=== PATIENT | male | born 1960 | race American Indian/Alaskan Native ===

== ENCOUNTER 2017-03-31 08:35 | Inpatient (IN) | payer MEDICAID ==
[2017-03-31 09:00] VITALS: BMI 21.4
[2017-03-31] MEDS: Albuterol-Ipratrop 3 mg / 0.5 (3 ml) UD IH SCH ×3 (09:30→09:55)
[2017-03-31] MEDS ORDERED: Albuterol-Ipratrop 3 mg / 0.5 (3 ml) UD ONE (09:31)
[2017-03-31] MEDS ORDERED: Sodium Chloride 0.9% 500 ML IV ONE ×2 (09:58→10:16)
--- NOTE | 2017-03-31 09:58 | C.PDOC ---
History Of Present Illness The patient with PMHx of COPD and Heroin abuse reports 3 day history cough which is associated fever, chills, and bodyaches. The patient reports that today the symptoms are now associated with diarrhea. Denies vomiting, travel, GI bleeding, chest pain, rash, abdominal pain, neck pain. Time Seen by Provider: 03/31/17 08:37 Chief Complaint (Nursing): Shortness Of Breath History Per: Patient History/Exam Limitations: no limitations Onset/Duration Of Symptoms: Days Current Symptoms Are (Timing): Still Present Recent travel outside of the [place]: No Past Medical History Reviewed: Historical Data, Nursing Documentation, Vital Signs Vital Signs: Last Vital Signs Temp 98.9 F 03/31/17 09:01 Pulse 69 03/31/17 09:57 Resp 27 H 03/31/17 09:57 BP 152/92 H 03/31/17 09:57 Pulse Ox 95 03/31/17 11:04 - Medical History PMH: No Chronic Diseases, COPD Family History: States: No Known Family Hx - Social History Hx Alcohol Use: No Hx Substance Use: Yes - Immunization History Hx Tetanus Toxoid Vaccination: No Hx Influenza Vaccination: No Hx Pneumococcal Vaccination: No Review Of Systems Except As Marked, All Systems Reviewed And Found Negative. Physical Exam - Physical Exam Appears: Non-toxic, No Acute Distress Skin: Normal Color, Warm, No Rash Head: Atraumatic, Normacephalic Eye(s): bilateral: Normal Inspection Oral Mucosa: Moist Throat: No Erythema, No Exudate Neck: Normal ROM, Supple Lymphatic: Normal Exam Chest: Symmetrical, No Tenderness Cardiovascular: Rhythm Regular, No Friction Rub, No Murmur Respiratory: Decreased Breath Sounds, No Rales, No Rhonchi, No Wheezing Gastrointestinal/Abdominal: Soft, No Tenderness Back: Normal Inspection, No CVA Tenderness Extremity: Normal ROM, No Tenderness, No Swelling Neurological/Psych: Oriented x3, Normal Speech, Normal Motor Gait: Steady ED Course And Treatment - Laboratory Results Result Diagrams: 03/31/17 10:01 03/31/17 10:01 O2 Sat by Pulse Oximetry: 95 (on RA) Pulse Ox Interpretation: Normal Medical Decision Making Medical Decision Making: Patient given Duonebs and solu-medrol for suspected COPD exacerbation. Flu (+). Tamiflu given. The case was discussed with Dr. Lombardi (hospitalist) who agrees to admit the patient to his service. Disposition - Disposition Disposition: HOSPITALIZED Disposition Time: 11:08 Condition: FAIR Forms: [facility] (Romansh) - POA Present On Arrival: None - Clinical Impression Clinical Impression: Influenza A
--- NOTE | 2017-03-31 09:58 | RAD ---
Chest x-ray single frontal view History: Shortness breath. Comparison: 03/23/2017 Findings: Hyperinflation suggestive for COPD and or emphysematous changes. Small nodular density at the left lung base. Tubing projects over the left [place] thorax, possibly external. Clinical correlation. Bilateral hilar prominence. Diffuse increased interstitial lung markings. Heart size normal limits. Degenerative changes in the spine. Impression: Hyperinflation suggestive for COPD and or emphysematous changes. Small nodular density at the left lung base. Tubing projects over the left [place] thorax, possibly external. Clinical correlation. Bilateral hilar prominence. Diffuse increased interstitial lung markings.
[2017-03-31 10:07] LABS: BASO % 0.6 % (0.0-2.0); HEMOGLOBIN 15.8 g/dL (12.0-18.0); LYMPH # 0.6 K/uL (1.0-4.3); LYMPH % 7.3 % (20.0-40.0); MEAN CELL VOLUME 91.8 fL (80.0-94.0); MEAN CORPUSCULAR HEMOGLOBIN 31.6 pg (27.0-31.0); MEAN CORPUSCULAR HGB CONC 34.4 g/dL (33.0-37.0); MEAN PLATELET VOLUME 7.7 fL (7.2-11.7); MONO # 0.5 K/uL (0.0-0.8); MONO % 5.6 % (0.0-10.0); NEUT # 7.6 K/uL (1.8-7.0); NEUT % 86.5 % (50.0-75.0); PLATELET COUNT 240 K/uL (130-400); RED CELL DISTRIBUTION WIDTH 14.1 % (11.5-14.5); WHITE BLOOD COUNT 8.8 K/uL (4.8-10.8)
[2017-03-31 10:18] LABS: ALB/GLOB RATIO 1.1 (1.0-2.1); ALBUMIN 4.4 g/dL (3.5-5.0); ALT/SGPT 21 U/L (21-72); AST/SGOT 46 U/L (17-59); BLOOD UREA NITROGEN 13 mg/dL (9-20); CALCIUM 9.1 mg/dl (8.6-10.4); GFR AFRICAN-AMERICAN > 60; GFR NON-AFRICAN AMERICAN > 60
[2017-03-31 10:29] LABS: B-TYPE NATRIURETIC PEPTIDE 182 pg/mL (0-900)
[2017-03-31 11:07] LABS: BANDS 19 % (0-2); LYMPHOCYTE 5 % (20-40); MONOCYTE 5 % (0-10); NEUTROPHIL 71 % (50-75); TOTAL CELLS COUNTED 100
[2017-03-31 11:08] LABS: PLATELET ESTIMATE NORMAL (NORMAL)
--- NOTE | 2017-03-31 12:23 | CP.PCM.HP ---
History of Present Illness - History of Present Illness History of Present Illness: CC: "It's hard to breathe and my whole body hurts" Patient is a 57 year old male, with PMHx of COPD, Tobacco abuse disorder, and opioid use disorder, presents to [facility] [place] ED for shortness of breath and cough. Patient reports for last 3 days, he has had a productive cough with green sputum which has become associated with subjective fever, chills, and bodyaches. The patient reports that today the symptoms are now associated with non-bloody diarrhea. He states he can no longer take more than a few steps without becoming SOB, which he normally has no problem walking long distances. He denies needing increased pillows for sleep recently. Patient reports he has abused heroin "off/on for 30 + years." He states his typical use is 5 bags/day via snorting, with last use 2 days ago. He denies IVDA. He states he has done numerous rehab/inpatient visits in the past. He denies getting flu shot this year, knows no sick contacts, and states he has no PMD. He is aware of COPD but denies ever being given inhaler or other medication. He denies vomiting, travel, GI bleeding, chest pain, rash, abdominal pain, neck pain. PMD: none PMHx: COPD, Tobacco abuse disorder, and opioid use disorder PSHx: denies Allergies: PCN (swelling of throat) SHx: 1/2 - 1 ppd x 40 years, denies alcohol; heroin use (as above); employment - [employer] Meds: none Present on Admission - Present on Admission Any Indicators Present on Admission: No Review of Systems - Constitutional Constitutional: Chills, Fever, Weakness. absent: Night Sweats, Sleep Apnea - EENT Eyes: absent: Blurred Vision, Change in Vision Ears: absent: Ear Pain Nose/Mouth/Throat: Sore Throat - Cardiovascular Cardiovascular: Dyspnea. absent: Chest Pain, Chest Pain at Rest - Respiratory Respiratory: Cough, Dyspnea, Dyspnea on Exertion, Chest Congestion - Gastrointestinal Gastrointestinal: Abdominal Pain (epigastric) - Genitourinary Genitourinary: absent: Dysuria, Urinary Incontinence - Musculoskeletal Musculoskeletal: Arthralgias, Myalgias - Integumentary Integumentary: absent: Dry Skin, Wounds - Neurological Neurological: Weakness. absent: Tremor - Psychiatric Psychiatric: Anxiety, Irritability Past Patient History - Past Social History Smoking Status: Heavy Smoker > 10 Cigarettes Daily - PULMONARY Hx Chronic Obstructive Pulmonary Disease (COPD): Yes - PSYCHIATRIC Hx Substance Use: Yes Meds Allergies/Adverse Reactions: Allergies Allergy/AdvReac Type Severity Reaction Status Date / Time amoxicillin Allergy SWELLING Verified 03/31/17 09:00 Physical Exam - Constitutional Appears: Toxic, No Acute Distress, Older Than Stated Age, Chronically Ill - Head Exam Head Exam: ATRAUMATIC, NORMAL INSPECTION - Eye Exam Eye Exam: EOMI, Normal appearance. absent: Scleral icterus - ENT Exam ENT Exam: Mucous Membranes Dry - Neck Exam Neck exam: Positive for: Full Rom Additional comments: no jvd - Respiratory Exam Respiratory Exam: Clear to Auscultation Bilateral, NORMAL BREATHING PATTERN. absent: Accessory Muscle Use, Rales, Rhonchi, Wheezes, Stridor - Cardiovascular Exam Cardiovascular Exam: REGULAR RHYTHM, +S1, +S2, Systolic Murmur - GI/Abdominal Exam GI & Abdominal Exam: Normal Bowel Sounds, Soft, Tenderness (mild epigastric) - Extremities Exam Extremities exam: Positive for: normal inspection. Negative for: pedal edema, tenderness - Back Exam Back exam: absent: CVA tenderness (L), CVA tenderness (R) - Neurological Exam Neurological exam: Alert, Oriented x3 - Psychiatric Exam Psychiatric exam: Normal Affect, Normal Mood - Skin Skin Exam: Normal Color, Warm Results - Vital Signs Recent Vital Signs: Last Vital Signs Temp 98.9 F 03/31/17 09:01 Pulse 73 03/31/17 10:58 Resp 22 03/31/17 10:58 BP 129/81 03/31/17 10:58 Pulse Ox 95 03/31/17 11:12 - Labs Result Diagrams: 03/31/17 10:01 03/31/17 10:01 Labs: Laboratory Results - last 24 hr 03/31/17 03/31/17 03/31/17 09:30 10:01 10:01 WBC 8.8 RBC 5.00 Hgb 15.8 Hct 45.9 MCV 91.8 MCH 31.6 H MCHC 34.4 RDW 14.1 Plt Count 240 MPV 7.7 Neut % (Auto) 86.5 H Lymph % (Auto) 7.3 L [place] % (Auto) 5.6 Eos % (Auto) 0.0 Baso % (Auto) 0.6 Neut # 7.6 H Lymph # 0.6 L [place] # 0.5 Eos # 0.0 Baso # 0.0 Neutrophils % (Manual) 71 Band Neutrophils % 19 H* Lymphocytes % (Manual) 5 L Monocytes % (Manual) 5 Platelet Estimate Normal RBC Morphology Normal Sodium 130 L Potassium 3.8 Chloride 94 L Carbon Dioxide 25 Anion Gap 15 BUN 13 Creatinine 0.9 Est GFR ( Amer) > 60 Est GFR (Non-Af Amer) > 60 Random Glucose 149 H Calcium 9.1 Total Bilirubin 0.7 AST 46 ALT 21 Alkaline Phosphatase 81 Troponin I < 0.0120 NT-Pro-B Natriuret Pep 182 Total Protein 8.3 Albumin 4.4 Globulin 3.9 Albumin/Globulin Ratio 1.1 Influenza Typ A,B (EIA) Pos for influenza a H Assessment & Plan - Assessment and Plan (Free Text) Plan: Sepsis Criteria: Bands >10, Tachypneic Source: influenza, possible pneumonia Lactate 2.2 -f/u repeat VBG shock CXR (03/31/17): Hyperinflation suggestive for COPD. Small nodular density at left lung base. B/l hilar prominence. NS @100 cc/hr Aztreonam 1gm IV Q8H (start 03/31/17) Vancomycin 1gm IV Q12H (start 03/31/17) Tylenol 650mg PO Q6H PRN f/u repeat VBG shock f/u urinalysis, urine culture f/u blood cultures f/u procalcitonin f/u CT Chest W/O COPD exacerbation Admit to med/surg Solumedrol 40mg IV Q8H Pulmicort INH Q12H Influenza Droplet precautions NO WBC, fever + Influenza A Tamiflu 75mg PO BID x 5 days (course ends 04/05/17) Zofran 4mg IV Q6H PRN nausea NS @ 100 cc/hr Possible pneumonia At higher risk due to chronic lung disease, current influenza, and opiate drug use CXR (03/31/17): Hyperinflation suggestive for COPD. Small nodular density at left lung base. B/l hilar prominence. f/u CT Chest W/O Aztreonam 1gm IV Q8H (start 03/31/17) Vancomycin 1gm IV Q12H (start 03/31/17) Tylenol 650mg PO Q6H PRN Opiate use disorder, severe Last use 2 days ago Typical use: 5 bags/day x 2 + ears; 15 yr prior sobriety Methadone 10mg PO HS Psych consult: Dr Baptiste, help appreciated Denies IVDA but systolic murmur f/u ECHO Tobacco use disorder 1/2 - 1 ppd x 40 years Nicoderm CQ Prophylaxis Lovenox 40mg SC Daily SCDs Pepcid 20mg PO BID Florastor 250mg PO BID
[2017-03-31 12:57] LABS: VENOUS BLOOD GAS BASE EXCESS -1.4 mmol/L (0.0-2.0); VENOUS BLOOD GAS PCO2 36 mmHg (40-60); VENOUS BLOOD GAS PO2 38 mm/Hg (30-55); VENOUS BLOOD PH 7.41 (7.32-7.43)
[2017-03-31] MEDS ORDERED: Sodium Chloride 0.9% 1,000 ML IV SCH (14:00)
[2017-03-31 14:37] LABS: SQUAMOUS EPITHIAL < 1 /hpf (0-5); URINE BILIRUBIN NEGATIVE (NEGATIVE); URINE BLOOD 1+ (NEGATIVE); URINE CLARITY Clear (Clear); URINE COLOR Yellow (YELLOW); URINE GLUCOSE (UA) 2+ mg/dL (Normal); URINE LEUKOCYTE ESTERASE NEG Leu/uL (Negative); URINE NITRATE NEGATIVE (NEGATIVE); URINE PROTEIN 2+ mg/dL (NEGATIVE); URINE UROBILINOGEN NORMAL mg/dL (0.2-1.0)
[2017-03-31 14:51] LABS: BARBITURATES, UR NEGATIVE (NEGATIVE); BENZODIAZEPINES, UR NEGATIVE (NEGATIVE); PHENCYCLIDINE, UR NEGATIVE (NEGATIVE)
[2017-03-31 15:16] LABS: OPIATES, UR POSITIVE (NEGATIVE)
[2017-03-31] MEDS: Aztreonam 1 GM in Sodium Chloride 0.9% 100 ML IVPB SCH ×2 (15:26→22:11)
[2017-03-31] MEDS: Vancomycin 1 gm/NS 200 ml 1 GM/200 ML BAG IVPB SCH (16:35)
[2017-03-31] MEDS: Sodium Chloride 0.9% 1,000 ML IV SCH (18:10)
[2017-03-31 18:49] LABS: VENOUS BLOOD GAS BASE EXCESS -1.3 mmol/L (0.0-2.0); VENOUS BLOOD GAS PCO2 46 mmHg (40-60); VENOUS BLOOD GAS PO2 22 mm/Hg (30-55); VENOUS BLOOD PH 7.34 (7.32-7.43)
[2017-03-31] MEDS: Saccharomyces Boulardi 250 mg Cap PO SCH (18:51)
[2017-03-31] MEDS ORDERED: MethylPREDNISolone 40 mg Vial ONE (23:10)
[2017-03-31] MEDS: MethylPREDNISolone 40 mg Vial IVP SCH (23:10)
[2017-04-01 00:23] LABS: VENOUS BLOOD GAS BASE EXCESS 1.7 mmol/L (0.0-2.0); VENOUS BLOOD GAS PCO2 31 mmHg (40-60); VENOUS BLOOD GAS PO2 43 mm/Hg (30-55)
[2017-04-01] MEDS: Sodium Chloride 0.9% 1,000 ML IV SCH ×5 (01:45→21:35)
[2017-04-01] MEDS: Vancomycin 1 gm/NS 200 ml 1 GM/200 ML BAG IVPB SCH ×2 (04:40→16:55)
[2017-04-01] MEDS: Aztreonam 1 GM in Sodium Chloride 0.9% 100 ML IVPB SCH ×2 (06:17→14:00)
[2017-04-01 08:15] LABS: BASO # 0.1 K/uL (0.0-0.2); BASO % 0.6 % (0.0-2.0); HEMOGLOBIN 16.2 g/dL (12.0-18.0); LYMPH # 0.5 K/uL (1.0-4.3); LYMPH % 5.5 % (20.0-40.0); MEAN CELL VOLUME 91.9 fL (80.0-94.0); MEAN CORPUSCULAR HEMOGLOBIN 31.9 pg (27.0-31.0); MEAN CORPUSCULAR HGB CONC 34.7 g/dL (33.0-37.0); MEAN PLATELET VOLUME 8.1 fL (7.2-11.7); MONO # 0.6 K/uL (0.0-0.8); MONO % 6.6 % (0.0-10.0); NEUT # 8.3 K/uL (1.8-7.0); NEUT % 87.3 % (50.0-75.0); PLATELET COUNT 264 K/uL (130-400); RBC 5.09 Mil/uL (4.40-5.90); RED CELL DISTRIBUTION WIDTH 13.8 % (11.5-14.5); WHITE BLOOD COUNT 9.5 K/uL (4.8-10.8)
--- NOTE | 2017-04-01 08:49 | CT ---
PROCEDURE: CT Chest without contrast HISTORY: influenza, sepsis; COPD; density on CXR COMPARISON: None. TECHNIQUE: Contiguous axial images were obtained through the chest without intravenous contrast enhancement. Sagittal and coronal reconstructions were performed. Radiation dose (DLP): 165.99 mGy-cm. This CT exam was performed using one or more of the following dose reduction techniques: Automated exposure control, adjustment of the mA and/or kV according to patient size, and/or use of iterative reconstruction technique. FINDINGS: LUNGS: Multifocal opacities, ill-defined, in the right upper lobe and right middle lobe, superior segment right lower lobe, with dense consolidation in the left lower lobe as well as multifocal ill-defined opacities in the left lower lobe. Small airways disease noted diffusely in the right upper lobe. Centrilobular pulmonary emphysema. Bullous disease involving the left apex. MEDIASTINUM: Unremarkable thoracic aorta. No aneurysm. Normal sized heart. Main pulmonary artery unremarkable. No vascular congestion. No lymphadenopathy. PLEURA: No pleural fluid. No pneumothorax. BONES: No fracture. No destructive lesion. UPPER ABDOMEN: Multiple bilateral punctate nonobstructing renal calculi. OTHER FINDINGS: None. IMPRESSION: Left lower lobe consolidation. Multifocal airspace opacities involving the right upper, middle and lower lobes and left lower lobe. Centrilobular pulmonary emphysema with bullous disease. Multifocal small airways disease throughout the right upper lobe. Nonspecific findings. Concerning for an infectious etiology. Preliminary interpretation of this examination was reported by [facility] at 5:27 p.m. on 03/31/2017. There is concurrence of this report with the preliminary interpretation.
[2017-04-01 08:55] LABS: ALBUMIN 3.9 g/dL (3.5-5.0); ALT/SGPT 16 U/L (21-72); AST/SGOT 40 U/L (17-59); BLOOD UREA NITROGEN 16 mg/dL (9-20); CALCIUM 8.9 mg/dl (8.6-10.4); GFR AFRICAN-AMERICAN > 60; GFR NON-AFRICAN AMERICAN > 60
[2017-04-01] MEDS ORDERED: Potassium Chloride 20 mEq ER Tab PO ONE ×2 (09:21→11:15)
[2017-04-01] MEDS: Budesonide 0.5 mg/2 ml Inhal Susp UD INH SCH ×2 (09:26→20:12)
[2017-04-01] MEDS: Enoxaparin 40 mg Syringe SC SCH ×2 (10:00→10:58)
[2017-04-01] MEDS: Saccharomyces Boulardi 250 mg Cap PO SCH ×3 (10:00→18:43)
[2017-04-01 10:24] LABS: BANDS 12 % (0-2); LYMPHOCYTE 9 % (20-40); MONOCYTE 3 % (0-10); NEUTROPHIL 76 % (50-75); PLATELET ESTIMATE NORMAL (NORMAL); TOTAL CELLS COUNTED 100
[2017-04-01] MEDS: MethylPREDNISolone 40 mg Vial IVP SCH ×2 (10:59→22:22)
--- NOTE | 2017-04-01 11:25 | PCM.PSYCH ---
Initial Psychiatric Evaluation - Initial Psychiatric Evaluation Type of Admission: Voluntary Legal Status: Capacity Chief Complaint (in patient's own words): "I'm withdrawing" History of Present Illness and Precipitating Events: The pt is seen, chart reviewed and case discussed. Pt is a 57 y.o. AA male, 3 children, single, unemployed, lives with brother. Pt states he has snorted 5-6 bags of heroin per day for approximately 2 years. He has used heroin on/off for approximately 20 years. Pt smokes 1.5 ppd cigarettes. Denies use of cocaine, marijuana, xanax, PCP or alcohol. Pt denies suicidal ideation, denies hearing voices, denies feeling depressed. Past psych history: Pt states he has attended detox and rehab 4-5 times each. Family psych history: denies Medical hx- COPD Consultation called for heroin detox. Current Medications: Active Medications Generic Name Dose Route Start Last Admin Trade Name Freq PRN Reason Stop Dose Admin Acetaminophen 650 mg 03/31/17 13:53 Tylenol 325mg Tab PO Q6 PRN Fever >100.4 F Budesonide 0.5 mg 03/31/17 20:00 04/01/17 09:26 Pulmicort Respules INH Not Given RQ12 FARIHA Enoxaparin Sodium 40 mg 04/01/17 10:00 04/01/17 10:00 Lovenox SC Not Given DAILY FARIHA Famotidine 20 mg 03/31/17 18:00 04/01/17 10:00 Pepcid PO Not Given BID FARIHA Vancomycin/Sodium Chloride 1 gm in 200 mls @ 133 mls/hr 03/31/17 16:30 04:40 Vancomycin 1 Gm/Ns 200 Ml IVPB 04/05/17 16:31 133 mls/hr Q12H FARIHA Administration Aztreonam 1 gm/ Sodium 100 mls @ 100 mls/hr 03/31/17 15:30 04/01/17 06:17 Chloride IVPB 100 mls/hr Q8 FARIHA Administration Sodium Chloride 1,000 mls @ 100 mls/hr 03/31/17 17:18 04/01/17 03:18 Sodium Chloride 0.9% IV Not Given .Q10H FARIHA Methadone HCl 15 mg 04/01/17 11:30 Methadone PO 04/01/17 11:31 ONCE ONE Methylprednisolone 40 mg 03/31/17 22:00 04/01/17 10:59 Solu-Medrol IVP 40 mg Q12H FARIHA Administration Nicotine 1 patch 03/31/17 14:00 04/01/17 10:00 Nicoderm Cq TD Not Given DAILY FARIHA Ondansetron HCl 4 mg 03/31/17 14:05 04/01/17 06:29 Zofran Inj IVP 4 mg Q6H PRN Administration Nausea/Vomiting Oseltamivir Phosphate 75 mg 03/31/17 18:00 04/01/17 10:58 Tamiflu Cap PO 04/05/17 14:01 75 mg BID FARIHA Administration Quetiapine Fumarate 50 mg 04/01/17 22:00 Seroquel PO HS FARIHA Saccharomyces Boulardii 250 mg 03/31/17 18:00 04/01/17 10:00 Florastor PO Not Given BID FARIHA Past Psychiatric History - Past Psychiatric History Previous Treatment History: None Pertinent Medical Hx (Current Medical&Sleep Prob, Allergies): Allergies Allergy/AdvReac Type Severity Reaction Status Date / Time amoxicillin Allergy SWELLING Verified 03/31/17 09:00 No Known Home Med 03/31/17 Review of Systems - Neurological Neurological: UNREMARKABLE - Psychiatric Psychiatric: Abnormal Sleep Pattern, Anxiety, Difficulty Concentrating. absent : Hallucinations, Homicidal Ideation, Paranoia, Suicidal Ideation Mental Status Examination - Personal Presentation Personal Presentation: Looks stated age (unkempt, cooperative) - Affect Affect: Constricted - Motor Activity Motor Activity: Calm - Reliability in Providing Information Reliability in Providing Information: Good - Speech Speech: Organized (slowed) - Mood Mood: Anxious - Formal Thought Process Formal Thought Process: No Impairment - Cognitive Functions Orientation: Person, Place, Situation, Time Sensorium: Drowsy Attention/Concentration: Easily distracted Estimate of Intelligence: Average Judgement: Intact, as evidence by: Insight regarding need for hospitalization Memory: Recent intact, as evidence by: Ability to recall events of the day, Remote intact, as evidenced by: Abilit to recall sig. life events - Risk Risk: Withdrawal, Falls, Diminished functioning - Strength & Assets Inventory Strength & Assets Inventory: Life experience, Cooperative - Limitations Limitations: Other (unemployed, poor support) DSM 5 DX - DSM 5 DSM 5 Diagnosis: Opioid withdrawal opioid use d/o - severe Tobacco use d/o - severe - Recommended/Plan of Treatment Treatment Recommendations and Plan of Treatment: Methadone detox As needed medications All risks, benefits and alternatives of the meds discussed, and the pt agreed and understood. Supportive therapy and psychoeducation RI for abstinence Encourage MAT Refer to rehab - for instance [facility] in [place] as he doesn't want local ones. Smoking cessation with RI Nicotine patch 34 min Prognosis: Good with treatment - Smoking Cessation Smoking Cessation Initiated: Yes
--- NOTE | 2017-04-01 12:31 | RAD ---
HISTORY: pnemonia COMPARISON: 03/31/2017 FINDINGS: LUNGS: Patchy left basilar opacity. . Multifocal right-sided opacities on recent chest CT examination are not evident. . Paucity of lung markings in medial left upper lobe consistent with bullous disease as evident on CT examination. PLEURA: No pleural effusion or pneumothorax. CARDIOVASCULAR: Normal. OSSEOUS STRUCTURES: No significant abnormalities. VISUALIZED UPPER ABDOMEN: Normal. OTHER FINDINGS: None. IMPRESSION: Patchy left basilar opacity. Possible pneumonia. Left apical bullous disease.
--- NOTE | 2017-04-01 14:30 | CP.PCM.CON ---
History of Present Illness - History of Present Illness History of Present Illness: dictated Past Patient History - Past Social History Smoking Status: Heavy Smoker > 10 Cigarettes Daily - CARDIAC Hx Hypertension: Yes - PULMONARY Hx Chronic Obstructive Pulmonary Disease (COPD): Yes - MUSCULOSKELETAL/RHEUMATOLOGICAL Hx Falls: No - GASTROINTESTINAL Hx Diarrhea: Yes Hx Vomiting: Yes - PSYCHIATRIC Hx Substance Use: Yes - ANESTHESIA Hx Anesthesia: Yes Hx Anesthesia Reactions: No Hx Malignant Hyperthermia: No Has any member of the family had a problem w/ anesthesia?: No Meds Allergies/Adverse Reactions: Allergies Allergy/AdvReac Type Severity Reaction Status Date / Time amoxicillin Allergy SWELLING Verified 03/31/17 09:00 - Medications Medications: Current Medications Acetaminophen (Tylenol 325mg Tab) 650 mg PO Q6 PRN PRN Reason: Fever >100.4 F Budesonide (Pulmicort Respules) 0.5 mg INH RQ12 [facility] Last Admin: 04/01/17 09:26 Dose: Not Given Enoxaparin Sodium (Lovenox) 40 mg SC DAILY [facility] Last Admin: 04/01/17 10:00 Dose: Not Given Famotidine (Pepcid) 20 mg PO BID [facility] Last Admin: 04/01/17 10:00 Dose: Not Given Vancomycin/Sodium Chloride (Vancomycin 1 Gm/Ns 200 Ml) 1 gm in 200 mls @ 133 mls/hr IVPB Q12H [facility] Stop: 04/05/17 16:31 Last Admin: 04/01/17 04:40 Dose: 133 mls/hr Sodium Chloride (Sodium Chloride 0.9%) 1,000 mls @ 100 mls/hr IV .Q10H [facility] Last Admin: 04/01/17 03:18 Dose: Not Given Moxifloxacin HCl (Avelox Iv 400mg/250ml Ns) 400 mg in 250 mls @ 167 mls/hr IVPB Q24H [facility] Methylprednisolone (Solu-Medrol) 40 mg IVP Q12H [facility] Last Admin: 04/01/17 10:59 Dose: 40 mg Nicotine (Nicoderm Cq) 1 patch TD DAILY [facility] Last Admin: 04/01/17 10:00 Dose: Not Given Ondansetron HCl (Zofran Inj) 4 mg IVP Q6H PRN PRN Reason: Nausea/Vomiting Last Admin: 04/01/17 06:29 Dose: 4 mg Oseltamivir Phosphate (Tamiflu Cap) 75 mg PO BID [facility] Stop: 04/05/17 14:01 Last Admin: 04/01/17 10:58 Dose: 75 mg Quetiapine Fumarate (Seroquel) 50 mg PO [facility] Saccharomyces Boulardii (Florastor) 250 mg PO BID [facility] Last Admin: 04/01/17 10:00 Dose: Not Given Results - Vital Signs Recent Vital Signs: Last Vital Signs Temp 98.9 F 04/01/17 00:56 Pulse 61 04/01/17 00:56 Resp 20 04/01/17 00:56 BP 160/90 H 04/01/17 06:31 Pulse Ox 96 04/01/17 03:06 - Labs Result Diagrams: 04/01/17 08:05 04/01/17 08:05 Labs: Laboratory Results - last 24 hr 03/31/17 03/31/17 03/31/17 14:13 14:13 15:18 WBC RBC Hgb Hct MCV MCH MCHC RDW Plt Count MPV Neut % (Auto) Lymph % (Auto) [place] % (Auto) Eos % (Auto) Baso % (Auto) Neut # Lymph # [place] # Eos # Baso # Neutrophils % (Manual) Band Neutrophils % Lymphocytes % (Manual) Monocytes % (Manual) Platelet Estimate RBC Morphology pO2 VBG pH VBG pCO2 VBG HCO3 VBG Total CO2 VBG O2 Sat (Calc) VBG Base Excess VBG Potassium Sodium Chloride Glucose Lactate Potassium Carbon Dioxide Anion Gap BUN Creatinine Est GFR ( Amer) Est GFR (Non-Af Amer) Random Glucose Calcium Phosphorus Magnesium Total Bilirubin AST ALT Alkaline Phosphatase Total Protein Albumin Globulin Albumin/Globulin Ratio Procalcitonin 4.93 H Venous Blood Potassium Urine Color Yellow Urine Clarity Clear Urine pH 6.0 Ur Specific [place] 1.017 Urine Protein 2+ H Urine Glucose (UA) 2+ H Urine Ketones Trace Urine Blood 1+ H Urine Nitrate Negative Urine Bilirubin Negative Urine Urobilinogen Normal Ur Leukocyte Esterase Neg Urine WBC (Auto) 1 Urine RBC (Auto) 4 H Ur Squamous Epith Cells < 1 Urine Opiates Screen Positive H Urine Methadone Screen Negative Ur Barbiturates Screen Negative Ur Phencyclidine Scrn Negative Ur Amphetamines Screen Negative U Benzodiazepines Scrn Negative U Oth Cocaine Metabols Positive H U Cannabinoids Screen Negative 03/31/17 04/01/17 04/01/17 18:46 00:15 08:05 WBC 9.5 RBC 5.09 Hgb 16.2 Hct 46.8 MCV 91.9 MCH 31.9 H MCHC 34.7 RDW 13.8 Plt Count 264 MPV 8.1 Neut % (Auto) 87.3 H Lymph % (Auto) 5.5 L [place] % (Auto) 6.6 Eos % (Auto) 0.0 Baso % (Auto) 0.6 Neut # 8.3 H Lymph # 0.5 L [place] # 0.6 Eos # 0.0 Baso # 0.1 Neutrophils % (Manual) 76 H Band Neutrophils % 12 H* Lymphocytes % (Manual) 9 L Monocytes % (Manual) 3 Platelet Estimate Normal RBC Morphology Normal pO2 22 L 43 VBG pH 7.34 7.50 H VBG pCO2 46 31 L VBG HCO3 22.2 25.9 VBG Total CO2 26.2 25.2 VBG O2 Sat (Calc) 41.3 85.2 H VBG Base Excess -1.3 L 1.7 VBG Potassium 3.5 L 4.4 Sodium 137.0 132.0 Chloride 99.0 97.0 L Glucose 132 H 133 H Lactate 3.6 H 1.8 Potassium Carbon Dioxide Anion Gap BUN Creatinine Est GFR ( Amer) Est GFR (Non-Af Amer) Random Glucose Calcium Phosphorus Magnesium Total Bilirubin AST ALT Alkaline Phosphatase Total Protein Albumin Globulin Albumin/Globulin Ratio Procalcitonin Venous Blood Potassium 3.5 L 4.4 Urine Color Urine Clarity Urine pH Ur Specific [place] Urine Protein Urine Glucose (UA) Urine Ketones Urine Blood Urine Nitrate Urine Bilirubin Urine Urobilinogen Ur Leukocyte Esterase Urine WBC (Auto) Urine RBC (Auto) Ur Squamous Epith Cells Urine Opiates Screen Urine Methadone Screen Ur Barbiturates Screen Ur Phencyclidine Scrn Ur Amphetamines Screen U Benzodiazepines Scrn U Oth Cocaine Metabols U Cannabinoids Screen 04/01/17 08:05 WBC RBC Hgb Hct MCV MCH MCHC RDW Plt Count MPV Neut % (Auto) Lymph % (Auto) [place] % (Auto) Eos % (Auto) Baso % (Auto) Neut # Lymph # [place] # Eos # Baso # Neutrophils % (Manual) Band Neutrophils % Lymphocytes % (Manual) Monocytes % (Manual) Platelet Estimate RBC Morphology pO2 VBG pH VBG pCO2 VBG HCO3 VBG Total CO2 VBG O2 Sat (Calc) VBG Base Excess VBG Potassium Sodium 131 L Chloride 99 Glucose Lactate Potassium 3.5 L Carbon Dioxide 22 Anion Gap 14 BUN 16 Creatinine 0.7 L Est GFR ( Amer) > 60 Est GFR (Non-Af Amer) > 60 Random Glucose 126 H Calcium 8.9 Phosphorus 2.9 Magnesium 2.0 Total Bilirubin 0.6 AST 40 ALT 16 L D Alkaline Phosphatase 70 Total Protein 7.7 Albumin 3.9 Globulin 3.7 Albumin/Globulin Ratio 1.0 Procalcitonin Venous Blood Potassium Urine Color Urine Clarity Urine pH Ur Specific [place] Urine Protein Urine Glucose (UA) Urine Ketones Urine Blood Urine Nitrate Urine Bilirubin Urine Urobilinogen Ur Leukocyte Esterase Urine WBC (Auto) Urine RBC (Auto) Ur Squamous Epith Cells Urine Opiates Screen Urine Methadone Screen Ur Barbiturates Screen Ur Phencyclidine Scrn Ur Amphetamines Screen U Benzodiazepines Scrn U Oth Cocaine Metabols U Cannabinoids Screen
--- NOTE | 2017-04-01 15:34 | CARD ---
APPROVED REPORT EXAM: Two-dimensional and M-mode echocardiogram with Doppler and color Doppler. INDICATION Murmur COPD FLU/ IV user 2D DIMENSIONS IVSd0.9 (0.7-1.1cm)LVDd3.5 (3.9-5.9cm) PWd1.0 (0.7-1.1cm)LVDs2.9 (2.5-4.0cm) FS (%) 17.7 %LVEF (%)45.0 (>50%) M-Mode DIMENSIONS Left Atrium (MM)2.98 (2.5-4.0cm)IVSd0.76 (0.7-1.1cm) Aortic Root3.07 (2.2-3.7cm)LVDd4.31 (4.0-5.6cm) Aortic Cusp Exc.1.94 (1.5-2.0cm)PWd1.28 (0.7-1.1cm) FS (%) 29 %LVDs3.07 (2.0-3.8cm) LVEF (%)56 (>50%) Mitral Valve MV E Pimxjuzx82.2cm/sMV A Odbwimrj81.5cm/sE/A ratio0.9 TDI E/Lateral E'0.0E/Medial E'0.0 LEFT VENTRICLE The left ventricle is normal size. There is normal left ventricular wall thickness. The left ventricular ejection fraction is within the normal range. Septal hypokinesis Transmitral Doppler flow pattern is Grade I-abnormal relaxation pattern. RIGHT VENTRICLE The right ventricle is mildly dilated. RV Systolic function is moderately reduced. ATRIA The left atrium size is normal. The right atrium size is normal. AORTIC VALVE The aortic valve is not well visualized. No aortic regurgitation is present. There is no aortic valvular stenosis. MITRAL VALVE The mitral valve is mildly thickened. There is no mitral valve stenosis. There is no mitral valve regurgitation noted. TRICUSPID VALVE The tricuspid valve is normal in structure. GREAT VESSELS The aortic root is normal in size. PERICARDIAL EFFUSION There is a trace circumferential pericardial effusion. <Conclusion> The left ventricle is normal size. There is normal left ventricular wall thickness. The left ventricular ejection fraction is within the normal range. Septal hypokinesis Transmitral Doppler flow pattern is Grade I-abnormal relaxation pattern. The right ventricle is mildly dilated. RV Systolic function is moderately reduced.
[2017-04-01] MEDS: Moxifloxacin IV 400mg/250ml NS 400 MG/250 ML BAG IVPB SCH (16:20)
--- NOTE | 2017-04-01 17:18 | CARD ---
APPROVED REPORT EKG Measurement Heart [id number] <Conclusion> Normal sinus rhythm Nonspecific T wave abnormality Abnormal ECG
--- NOTE | 2017-04-01 17:26 | CP.PCM.PN ---
<Araceli Rivera - Last Filed: 04/01/17 17:24> Subjective - Date & Time of Evaluation Date of Evaluation: 04/01/17 Time of Evaluation: 07:00 - Subjective Subjective: Medicine Progress Note: Patient was seen and examined at bedside in the AM. Patient states he has been having nausea and episodes of vomiting. He states he is withdrawing. He states he uses about 6 bags of heroin per day and sometimes uses cocaine as well. He denies using IV only snorting. 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 Objective - Vital Signs/Intake and Output Vital Signs (last 24 hours): Temp Pulse Resp BP Pulse Ox 99.9 F H 62 20 167/84 H 95 04/01/17 16:00 04/01/17 16:00 04/01/17 16:00 04/01/17 16:00 04/01/17 16:00 Intake and Output: 04/01/17 04/01/17 06:59 18:59 Intake Total 1100 Balance 1100 - Medications Medications: Current Medications Acetaminophen (Tylenol 325mg Tab) 650 mg PO Q6 PRN PRN Reason: Fever >100.4 F Budesonide (Pulmicort Respules) 0.5 mg INH RQ12 [facility] Last Admin: 04/01/17 09:26 Dose: Not Given Enoxaparin Sodium (Lovenox) 40 mg SC DAILY [facility] Last Admin: 04/01/17 10:00 Dose: Not Given Famotidine (Pepcid) 20 mg PO BID [facility] Last Admin: 04/01/17 10:00 Dose: Not Given Vancomycin/Sodium Chloride (Vancomycin 1 Gm/Ns 200 Ml) 1 gm in 200 mls @ 133 mls/hr IVPB Q12H [facility] Stop: 04/05/17 16:31 Last Admin: 04/01/17 04:40 Dose: 133 mls/hr Sodium Chloride (Sodium Chloride 0.9%) 1,000 mls @ 100 mls/hr IV .Q10H [facility] Last Admin: 04/01/17 03:18 Dose: Not Given Moxifloxacin HCl (Avelox Iv 400mg/250ml Ns) 400 mg in 250 mls @ 167 mls/hr IVPB Q24H [facility] Methylprednisolone (Solu-Medrol) 40 mg IVP Q12H [facility] Last Admin: 04/01/17 10:59 Dose: 40 mg Nicotine (Nicoderm Cq) 1 patch TD DAILY [facility] Last Admin: 04/01/17 10:00 Dose: Not Given Ondansetron HCl (Zofran Inj) 4 mg IVP Q6H PRN PRN Reason: Nausea/Vomiting Last Admin: 04/01/17 06:29 Dose: 4 mg Oseltamivir Phosphate (Tamiflu Cap) 75 mg PO BID [facility] Stop: 04/05/17 14:01 Last Admin: 04/01/17 10:58 Dose: 75 mg Quetiapine Fumarate (Seroquel) 50 mg PO HS [facility] Saccharomyces Boulardii (Florastor) 250 mg PO BID [facility] Last Admin: 04/01/17 10:00 Dose: Not Given - Labs Labs: 04/01/17 08:05 04/01/17 08:05 - Constitutional Appears: Toxic - Head Exam Head Exam: ATRAUMATIC, NORMAL INSPECTION - Eye Exam Eye Exam: EOMI, Normal appearance - ENT Exam ENT Exam: Mucous Membranes Dry - Respiratory Exam Respiratory Exam: Clear to Ausculation Bilateral, NORMAL BREATHING PATTERN - Cardiovascular Exam Cardiovascular Exam: REGULAR RHYTHM, +S1, +S2 - GI/Abdominal Exam GI & Abdominal Exam: Soft, Normal Bowel Sounds. absent: Tenderness - Extremities Exam Extremities Exam: Normal Inspection - Neurological Exam Neurological Exam: Alert, Awake, Oriented x3 - Skin Skin Exam: Normal Color, Warm Assessment and Plan - Assessment and Plan (Free Text) Assessment: 1.) Sepsis - On admission Bands >10, Tachypneic - Influenza A + - Pneumonia - Lactate 2.2 --> 3.6 --> 1.8 - Procalcitonin 4.93 - ID Consult: Dr. Webster --> help appreciated - Images: * CXR (03/31/17): Hyperinflation suggestive for COPD. Small nodular density at left lung base. B/l hilar prominence. * Chest CT w/o contrast: Left lower lobe consolidation. Multifocal airspace opacities involving the right upper, middle and lower lobes and left lower lobe. Centrilobular pulmonary emphysema with bullous disease. Multifocal small airways disease throughout the right upper lobe. Nonspecific findings. Concerning for an infectious etiology. * CXR (04/01/17) Patchy left basilar opacity. Possible pneumonia. Left apical bullous disease. - Medications * NS @100 cc/hr * Aztreonam 1gm IV Q8H (start 03/31/17) discontinued * Vancomycin 1gm IV Q12H (start 03/31/17) * Tamiflu 75mg PO BID * Moxifloxacin 400mg q24h (started on 04/01/17) * Florastor 250mg PO BID * Tylenol 650mg PO Q6H PRN - urine culture: No growth - f/u blood cultures 2.) COPD exacerbation - Solumedrol 40mg IV Q8H - Pulmicort INH Q12H 3.) Influenza - ID Consult: Dr. Webster --> help appreciated - Droplet precautions - NO WBC, fever - + Influenza A - Medications * Tamiflu 75mg PO BID x 5 days (course ends 04/05/17) * Zofran 4mg IV Q6H PRN nausea * NS @ 100 cc/hr 4.) Pneumonia - ID Consult: Dr. Webster --> help appreciated - Images * CXR (03/31/17): Hyperinflation suggestive for COPD. Small nodular density at left lung base. B/l hilar prominence. * Chest CT w/o contrast: Left lower lobe consolidation. Multifocal airspace opacities involving the right upper, middle and lower lobes and left lower lobe. Centrilobular pulmonary emphysema with bullous disease. Multifocal small airways disease throughout the right upper lobe. Nonspecific findings. Concerning for an infectious etiology. * CXR (04/01/17) Patchy left basilar opacity. Possible pneumonia. Left apical bullous disease. - Medications: * Aztreonam 1gm IV Q8H (start 03/31/17) - discontinued * Vancomycin 1gm IV Q12H (start 03/31/17) * Moxifloxacin 400mg q24h (started on 04/01/17) * Tylenol 650mg PO Q6H PRN 5.) Opiate use disorder, severe - Last use 2 days ago - Psych consult: Dr Baptiste --> help appreciated - Denies IVDA but systolic murmur - ECHO (03/31/17): EF 45%; The left ventricle is normal size. There is normal left ventricular wall thickness. The left ventricular ejection fraction is within the normal range. Septal hypokinesis. Transmitral doppler flow pattern is Grade I abnormal relaxation pattern. The right ventricle is mildly dilated. RV systolic function is moderately reduced. - Seroquel 50mg PO HS 6.) Tobacco use disorder - Nicotine Patch 7.) Prophylaxis - Lovenox 40mg SC Daily - SCDs - Pepcid 20mg PO BID - Florastor 250mg PO BID - Droplet Precaution Case discussed with Dr. Sarah Rivera PGY-1 <Nancy Smith V - Last Filed: 04/02/17 07:53> Objective - Vital Signs/Intake and Output Vital Signs (last 24 hours): Temp Pulse Resp BP Pulse Ox 97.3 F L 78 18 99/71 L 95 04/01/17 23:27 04/01/17 23:27 04/01/17 23:27 04/01/17 23:27 04/01/17 23:27 Intake and Output: 04/02/17 04/02/17 06:59 18:59 Intake Total 1850 Output Total 400 Balance 1450 - Medications Medications: Current Medications Acetaminophen (Tylenol 325mg Tab) 650 mg PO Q6 PRN PRN Reason: Fever >100.4 F Budesonide (Pulmicort Respules) 0.5 mg INH RQ12 [facility] Last Admin: 04/02/17 07:20 Dose: Not Given Enoxaparin Sodium (Lovenox) 40 mg SC DAILY [facility] Last Admin: 04/01/17 10:00 Dose: Not Given Famotidine (Pepcid) 20 mg PO BID [facility] Last Admin: 04/01/17 18:43 Dose: Not Given Vancomycin/Sodium Chloride (Vancomycin 1 Gm/Ns 200 Ml) 1 gm in 200 mls @ 133 mls/hr IVPB Q12H [facility] Stop: 04/05/17 16:31 Last Admin: 04/02/17 04:45 Dose: 133 mls/hr Sodium Chloride (Sodium Chloride 0.9%) 1,000 mls @ 100 mls/hr IV .Q10H [facility] Last Admin: 04/01/17 18:44 Dose: 100 mls/hr Moxifloxacin HCl (Avelox Iv 400mg/250ml Ns) 400 mg in 250 mls @ 167 mls/hr IVPB Q24H [facility] Last Admin: 04/01/17 16:20 Dose: 167 mls/hr Methylprednisolone (Solu-Medrol) 40 mg IVP Q12H [facility] Last Admin: 04/01/17 22:22 Dose: 40 mg Nicotine (Nicoderm Cq) 1 patch TD DAILY [facility] Last Admin: 04/01/17 10:00 Dose: Not Given Ondansetron HCl (Zofran Inj) 4 mg IVP Q6H PRN PRN Reason: Nausea/Vomiting Last Admin: 04/01/17 06:29 Dose: 4 mg Oseltamivir Phosphate (Tamiflu Cap) 75 mg PO BID [facility] Stop: 04/05/17 14:01 Last Admin: 04/01/17 18:39 Dose: 75 mg Quetiapine Fumarate (Seroquel) 50 mg PO HS [facility] Last Admin: 04/01/17 22:22 Dose: 50 mg Saccharomyces Boulardii (Florastor) 250 mg PO BID [facility] Last Admin: 04/01/17 18:43 Dose: Not Given - Labs Labs: 04/01/17 08:05 04/01/17 08:05 Attending/Attestation - Attestation I have personally seen and examined this patient.: Yes I have fully participated in the care of the patient.: Yes I have reviewed all pertinent clinical information, including history, physical exam and plan: Yes Notes (Text): This is a late computer entry for 04/01/2017. Patient admitted for sepsis, positive for influenza a, possible COPD exacerbation, worsened by heroin withdrawal, and is at high risk for associated pneumonia. Patient was seen this morning. Patient was actively throwing up and did not feel well discussed with nursing staff. Patient was seen by psychiatry team and ordered for methadone to help with withdrawal. Infectious disease was consult to given sepsis influenza and possible pneumonia. Repeat chest x-ray was done given the patient is is more hydrated to check for pneumonia. Patient was ordered for mycoplasma pneumoniae and strep. I did inform hernandez according the infectious disease nurse in regards to patient meeting sepsis criteria he was admitted to yesterday however unclear why he was not officially called as "code sepsis"and he is not being called "sepsis today in light of his lactic acid has improved to 1.8. He is currently on 2 IV antibiotics as well as Tamiflu and pro calcitonin is elevated suggesting bacterial cause. Assessment/Plan 1) Sepsis * Criteria: Bands >10, Tachypneic * Source: influenza, possible pneumonia * Infectious Disease (Dr. Webster) on board-->help appreciated * Lactate 2.2-->3.6-->1.8 * NS @100 cc/hr * Aztreonam 1gm IV Q8H (start 03/31-) switched to Avelox 400mg IV Q daily ( active since 04/01/17) * Vancomycin 1gm IV Q12H (start 03/31/17) * Tylenol 650mg PO Q6H PRN * Blood cultures (03/31/17) * Urine culture (03/31/17): no growth * Procalcitonin: 4.93 (elevated) * CXR (03/31/17): Hyperinflation suggestive for COPD. Small nodular density at left lung base. B/l hilar prominence. * CT Chest W/O contrast (04/01/17): left lobe consolidation. Multifocal airpsace opacities involving the right upper, middle, and lower lobes, and left lower lobe. Centrilobular pulmonary emphysema with bollous disease. Multifocal small airways disease throughout the right upper lpbe. Nonspecific findings. * Tamiflu 75mg PO BID * Droplet precautions 2) Multifocal pneumonia * Infectious Disease (Dr. Webster) on board-->help appreciated * CT Chest W/O contrast (04/01/17): left lobe consolidation. Multifocal airpsace opacities involving the right upper, middle, and lower lobes, and left lower lobe. Centrilobular pulmonary emphysema with bollous disease. Multifocal small airways disease throughout the right upper lpbe. Nonspecific findings. * CXR (03/31/17): Hyperinflation suggestive for COPD. Small nodular density at left lung base. B/l hilar prominence. * Aztreonam 1gm IV Q8H (start 03/31-) switched to Avelox 400mg IV Q daily ( active since 04/01/17) * Vancomycin 1gm IV Q12H (start 03/31/17) * Tylenol 650mg PO Q6H PRN 3) Influenza A+ * Droplet precautions * + Influenza A * Tamiflu 75mg PO BID x 5 days (course ends 04/05/17) * NS @ 100 cc/hr 4) COPD exacerbation * CT Chest W/O contrast (04/01/17): left lobe consolidation. Multifocal airpsace opacities involving the right upper, middle, and lower lobes, and left lower lobe. Centrilobular pulmonary emphysema with bollous disease. Multifocal small airways disease throughout the right upper lpbe. Nonspecific findings. * CXR (03/31/17): Hyperinflation suggestive for COPD. Small nodular density at left lung base. B/l hilar prominence. * Solumedrol 40mg IV Q12H * Pulmicort INH Q12H 5) Opiate use disorder, severe * Psych consult: Dr Baptiste, help appreciated * Last use 3 days ago * Typical use: 5 bags/day x 2 + years; 15 yr prior sobriety * Given Methadone 15mg PO X1 by psychiatry for withdrawal * Denies IVDA but systolic murmur * ECHO (04/01/17): left ventricle is normal size, normal left ventricular wall thickness, left ventricular ejection fraction, septal hypokinesis, right ventricle is mildly dilated, RV systolic function is moderately reduce 6) Tobacco use disorder Cocaine use * 1/2 - 1 ppd x 40 years * Nicojames CQ * Provided tobacco cessation at bedside * UDS: cocaine and opiates 7) Prophylaxis * Lovenox 40mg SC Daily * SCDs * Pepcid 20mg PO BID * Florastor 250mg PO BID
[2017-04-02] MEDS: Vancomycin 1 gm/NS 200 ml 1 GM/200 ML BAG IVPB SCH ×2 (04:45→18:42)
[2017-04-02] MEDS: Budesonide 0.5 mg/2 ml Inhal Susp UD INH SCH ×2 (07:20→19:16)
--- NOTE | 2017-04-02 07:23 | CP.PCM.PN ---
Subjective - Date & Time of Evaluation Date of Evaluation: 04/02/17 Time of Evaluation: 07:00 - Subjective Subjective: Medicine Progress Note: Patient was seen and examined at bedside in the AM. Patient states he continues to have episodes of diarrhea about 5x in the past 24 hours. He states he continues to have nausea and has not been able to eat the liquid diet. Objective - Vital Signs/Intake and Output Vital Signs (last 24 hours): Temp Pulse Resp BP Pulse Ox 97.3 F L 78 18 99/71 L 95 04/01/17 23:27 04/01/17 23:27 04/01/17 23:27 04/01/17 23:27 04/01/17 23:27 Intake and Output: 04/02/17 04/02/17 06:59 18:59 Intake Total 1850 Output Total 400 Balance 1450 - Medications Medications: Current Medications Acetaminophen (Tylenol 325mg Tab) 650 mg PO Q6 PRN PRN Reason: Fever >100.4 F Budesonide (Pulmicort Respules) 0.5 mg INH RQ12 [facility] Last Admin: 04/02/17 07:20 Dose: Not Given Enoxaparin Sodium (Lovenox) 40 mg SC DAILY [facility] Last Admin: 04/01/17 10:00 Dose: Not Given Famotidine (Pepcid) 20 mg PO BID [facility] Last Admin: 04/01/17 18:43 Dose: Not Given Vancomycin/Sodium Chloride (Vancomycin 1 Gm/Ns 200 Ml) 1 gm in 200 mls @ 133 mls/hr IVPB Q12H [facility] Stop: 04/05/17 16:31 Last Admin: 04/02/17 04:45 Dose: 133 mls/hr Sodium Chloride (Sodium Chloride 0.9%) 1,000 mls @ 100 mls/hr IV .Q10H [facility] Last Admin: 04/01/17 18:44 Dose: 100 mls/hr Moxifloxacin HCl (Avelox Iv 400mg/250ml Ns) 400 mg in 250 mls @ 167 mls/hr IVPB Q24H [facility] Last Admin: 04/01/17 16:20 Dose: 167 mls/hr Methylprednisolone (Solu-Medrol) 40 mg IVP Q12H [facility] Last Admin: 04/01/17 22:22 Dose: 40 mg Nicotine (Nicoderm Cq) 1 patch TD DAILY [facility] Last Admin: 04/01/17 10:00 Dose: Not Given Ondansetron HCl (Zofran Inj) 4 mg IVP Q6H PRN PRN Reason: Nausea/Vomiting Last Admin: 04/01/17 06:29 Dose: 4 mg Oseltamivir Phosphate (Tamiflu Cap) 75 mg PO BID [facility] Stop: 04/05/17 14:01 Last Admin: 04/01/17 18:39 Dose: 75 mg Quetiapine Fumarate (Seroquel) 50 mg PO HS [facility] Last Admin: 04/01/17 22:22 Dose: 50 mg Saccharomyces Boulardii (Florastor) 250 mg PO BID [facility] Last Admin: 04/01/17 18:43 Dose: Not Given - Labs Labs: 04/01/17 08:05 04/01/17 08:05 - Constitutional Appears: Toxic - Head Exam Head Exam: ATRAUMATIC, NORMAL INSPECTION - Eye Exam Eye Exam: EOMI, Normal appearance - ENT Exam ENT Exam: Mucous Membranes Moist - Respiratory Exam Respiratory Exam: Clear to Ausculation Bilateral, NORMAL BREATHING PATTERN - Cardiovascular Exam Cardiovascular Exam: REGULAR RHYTHM, +S1, +S2 - GI/Abdominal Exam GI & Abdominal Exam: Soft, Normal Bowel Sounds. absent: Tenderness - Extremities Exam Extremities Exam: Normal Inspection - Neurological Exam Neurological Exam: Alert, Awake, Oriented x3 - Psychiatric Exam Psychiatric exam: Normal Affect, Normal Mood - Skin Skin Exam: Normal Color, Warm Assessment and Plan - Assessment and Plan (Free Text) Assessment: 1.) Sepsis - On admission Bands >10, Tachypneic - Influenza A + - Pneumonia - Lactate 2.2 --> 3.6 --> 1.8 - Procalcitonin 4.93 - ID Consult: Dr. Webster --> help appreciated - Images: * CXR (03/31/17): Hyperinflation suggestive for COPD. Small nodular density at left lung base. B/l hilar prominence. * Chest CT w/o contrast: Left lower lobe consolidation. Multifocal airspace opacities involving the right upper, middle and lower lobes and left lower lobe. Centrilobular pulmonary emphysema with bullous disease. Multifocal small airways disease throughout the right upper lobe. Nonspecific findings. Concerning for an infectious etiology. * CXR (04/01/17) Patchy left basilar opacity. Possible pneumonia. Left apical bullous disease. - Medications * NS @100 cc/hr * Aztreonam 1gm IV Q8H (start 03/31/17) discontinued * Vancomycin 1gm IV Q12H (start 03/31/17) * Tamiflu 75mg PO BID * Moxifloxacin 400mg q24h (started on 04/01/17) discontinued 04/02/17 due to QT prolongation * Discussed with Dr. Webster about recent EKG findings QT prolongation and agreed to change antibiotic to Tigecycline 50mg q12h * Florastor 250mg PO BID * Tylenol 650mg PO Q6H PRN - EKG: NSR, QT prolongation - urine culture: No growth - f/u blood cultures 2.) COPD exacerbation - Solumedrol 40mg IV Q8H - Pulmicort INH Q12H 3.) Influenza - ID Consult: Dr. Webster --> help appreciated - Droplet precautions - NO WBC, fever - + Influenza A - Medications * Tamiflu 75mg PO BID x 5 days (course ends 04/05/17) * Reglan 10mg q6h PRN for nausea * NS @ 100 cc/hr 4.) Pneumonia - ID Consult: Dr. Webster --> help appreciated - Images * CXR (03/31/17): Hyperinflation suggestive for COPD. Small nodular density at left lung base. B/l hilar prominence. * Chest CT w/o contrast: Left lower lobe consolidation. Multifocal airspace opacities involving the right upper, middle and lower lobes and left lower lobe. Centrilobular pulmonary emphysema with bullous disease. Multifocal small airways disease throughout the right upper lobe. Nonspecific findings. Concerning for an infectious etiology. * CXR (04/01/17) Patchy left basilar opacity. Possible pneumonia. Left apical bullous disease. - Medications: * Aztreonam 1gm IV Q8H (start 03/31/17) - discontinued * Vancomycin 1gm IV Q12H (start 03/31/17) * Moxifloxacin 400mg q24h (started on 04/01/17) - discontinued * Tigecycline 50mg q12h (started 04/02/17) * Tylenol 650mg PO Q6H PRN 5.) Opiate use disorder, severe - Last use 2 days ago - Psych consult: Dr Baptiste --> help appreciated - Denies IVDA but systolic murmur - ECHO (03/31/17): EF 45%; The left ventricle is normal size. There is normal left ventricular wall thickness. The left ventricular ejection fraction is within the normal range. Septal hypokinesis. Transmitral doppler flow pattern is Grade I abnormal relaxation pattern. The right ventricle is mildly dilated. RV systolic function is moderately reduced. - Seroquel 50mg PO HS 6.) Tobacco use disorder - Nicotine Patch 7.) New onset HTN - Norvasc 10mg daily 8.) Prophylaxis - Lovenox 40mg SC Daily - SCDs - Pepcid 20mg PO BID - Florastor 250mg PO BID - Droplet Precaution Case discussed with Dr. Sarah Rivera PGY-1
--- NOTE | 2017-04-02 07:41 | CON ---
DATE: INFECTIOUS DISEASE CONSULTATION REQUESTING PHYSICIAN: Dr. Nancy Smith. HISTORY OF PRESENT ILLNESS: This patient is a 57-year-old male. He was admitted because he was not able to breath and his whole body was hurting, and he is a male with history of COPD. He also has history heroin abuse. He smokes heroin and he said last was 2 days ago, COPD, tobacco abuse, opioid use. Was brought in with shortness of breath and productive cough. He was not able to breathe, was having fever, generalized body aches and fever. He is now found to have flu. He has abused heroin off and on for 30 years and he uses 5 bags a day. He has failed many rehabs and he was not able to breathe when he was brought in. He was feeling slightly better when I saw, but he was going to go downstairs to get an echo done. PAST MEDICAL HISTORY: COPD, heroin abuse and tobacco abuse. PAST SURGICAL HISTORY: He denied. ALLERGIES: HE IS ALLERGIC TO PENICILLIN. HE STATES IT GIVES KNOTS ON HIS HEAD AND SWELLING OF HIS THROAT. SOCIAL HISTORY: Significant for half pack per day for 20 years and drug abuse. He paints cars. MEDICATIONS: He does not take any medication. REVIEW OF SYSTEMS: He complained of chills, fever, weakness, joint pain. He denied any eye problems or ear problems. Did complain of sore throat and he was complaining of shortness of breath. Denied any chest pain and was coughing and short of breath. Does complain of some epigastric pain as he states he was vomiting before. Denies any urinary symptoms. Did come in with arthralgia and complains of generalized weakness. Denies any other complaints. MEDICATIONS: We started him on Tylenol, Pulmicort, Lovenox, Pepcid. He is on Solu-Medrol. He is going to get Avelox today and Tamiflu. He is on vancomycin 1 g q.12, Florastor, IV fluids and Tamiflu. So, he is covered and I will put him on some cough syrup but he is not coughing yet. PHYSICAL EXAMINATION: VITAL SIGNS: Temperature is 99.9, pulse 62, blood pressure 167/84, respirations are 20. HEENT: Head is atraumatic, normocephalic. Pupils are reactive to light. Trachea is central. NECK: Supple. LUNGS: Decreased breath sounds bilaterally. HEART: S1 and S2 regular. No murmurs appreciated. ABDOMEN: Soft, nontender, no guarding, no rigidity present. EXTREMITIES: No edema, clubbing or cyanosis but he is dark skinned, unable to evaluate well. LABORATORY DATA: White count is 9.5, hemoglobin 16.2, hematocrit 46.8, platelet count is 264, bands are 12, so he is a sick antoinette with 12 bands. ABG was 7.50, CO2 of 31 and it has improved with admission. At this time, he denies any HIV disease. His procalcitonin level was 4.93 when he was admitted. He has opioid positive and cocaine positive and his flu type A is positive, hence he is in isolation at the present time. He had a chest CT done and the chest CT shows left lower lobe consolidation, multifocal air space opacities involving right upper, middle and lower lobar pulmonary emphysema. So, he has left lower lobe consolidation also, pneumonia with multiple airspace opacities and pneumonia with flu probably and he has history of drug addiction also. We will follow. Makenzie Webster MD
[2017-04-02] MEDS ORDERED: Albuterol-Ipratrop 3 mg / 0.5 (3 ml) UD INH PRN (07:47)
[2017-04-02 08:05] VITALS: RESP 20
[2017-04-02 08:38] LABS: BASO % 0.3 % (0.0-2.0); HEMOGLOBIN 14.8 g/dL (12.0-18.0); LYMPH # 0.6 K/uL (1.0-4.3); LYMPH % 6.9 % (20.0-40.0); MEAN CELL VOLUME 92.2 fL (80.0-94.0); MEAN CORPUSCULAR HEMOGLOBIN 31.9 pg (27.0-31.0); MEAN CORPUSCULAR HGB CONC 34.6 g/dL (33.0-37.0); MEAN PLATELET VOLUME 8.2 fL (7.2-11.7); MONO % 12.9 % (0.0-10.0); NEUT # 6.4 K/uL (1.8-7.0); NEUT % 79.9 % (50.0-75.0); NRBC % 0.1 % (0.0-2.0); PLATELET COUNT 260 K/uL (130-400); RBC 4.66 Mil/uL (4.40-5.90); RED CELL DISTRIBUTION WIDTH 14.3 % (11.5-14.5)
[2017-04-02 08:53] LABS: ALB/GLOB RATIO 1.1 (1.0-2.1); ALBUMIN 3.5 g/dL (3.5-5.0); ALT/SGPT 20 U/L (21-72); AST/SGOT 36 U/L (17-59); BLOOD UREA NITROGEN 25 mg/dL (9-20); CALCIUM 8.3 mg/dl (8.6-10.4); GFR AFRICAN-AMERICAN > 60; GFR NON-AFRICAN AMERICAN > 60; MAGNESIUM 2.3 mg/dL (1.6-2.3)
[2017-04-02] MEDS: MethylPREDNISolone 40 mg Vial IVP SCH ×2 (09:04→21:45)
[2017-04-02] MEDS: Saccharomyces Boulardi 250 mg Cap PO SCH ×2 (09:04→18:00)
[2017-04-02] MEDS: Enoxaparin 40 mg Syringe SC SCH (09:04)
[2017-04-02] MEDS: Sodium Chloride 0.9% 1,000 ML IV SCH ×3 (09:37→18:00)
[2017-04-02 11:18] LABS: LYMPHOCYTE 6 % (20-40); MONOCYTE 13 % (0-10); NEUTROPHIL 81 % (50-75); PLATELET ESTIMATE NORMAL (NORMAL); TOTAL CELLS COUNTED 100
[2017-04-02] MEDS: Moxifloxacin IV 400mg/250ml NS 400 MG/250 ML BAG IVPB SCH (14:01)
--- NOTE | 2017-04-02 14:12 | CP.PCM.PN ---
Subjective - Date & Time of Evaluation Date of Evaluation: 04/02/17 Time of Evaluation: 02:10 - Subjective Subjective: dictated Objective - Vital Signs/Intake and Output Vital Signs (last 24 hours): Temp Pulse Resp BP Pulse Ox 98.1 F 55 L 20 177/93 H 95 04/02/17 08:03 04/02/17 08:03 04/02/17 08:03 04/02/17 08:03 04/02/17 08:03 Intake and Output: 04/02/17 04/02/17 06:59 18:59 Intake Total 1850 Output Total 400 Balance 1450 - Medications Medications: Current Medications Acetaminophen (Tylenol 325mg Tab) 650 mg PO Q6 PRN PRN Reason: Fever >100.4 F Albuterol/Ipratropium (Duoneb 3 Mg/0.5 Mg (3 Ml) Ud) 3 ml INH RQ6 PRN PRN Reason: Shortness of Breath Amlodipine Besylate (Norvasc) 10 mg PO DAILY [facility] Last Admin: 04/02/17 09:04 Dose: 10 mg Budesonide (Pulmicort Respules) 0.5 mg INH RQ12 [facility] Last Admin: 04/02/17 07:20 Dose: Not Given Enoxaparin Sodium (Lovenox) 40 mg SC DAILY [facility] Last Admin: 04/02/17 09:04 Dose: Not Given Famotidine (Pepcid) 20 mg PO BID [facility] Last Admin: 04/02/17 09:04 Dose: Not Given Vancomycin/Sodium Chloride (Vancomycin 1 Gm/Ns 200 Ml) 1 gm in 200 mls @ 133 mls/hr IVPB Q12H [facility] Stop: 04/05/17 16:31 Last Admin: 04/02/17 04:45 Dose: 133 mls/hr Sodium Chloride (Sodium Chloride 0.9%) 1,000 mls @ 100 mls/hr IV .Q10H [facility] Last Admin: 04/02/17 13:32 Dose: 100 mls/hr Moxifloxacin HCl (Avelox Iv 400mg/250ml Ns) 400 mg in 250 mls @ 167 mls/hr IVPB Q24H [facility] Last Admin: 04/02/17 14:01 Dose: 167 mls/hr Methadone HCl (Methadone) 10 mg PO Q24H [facility] PRN Reason: Taper Stop: 04/06/17 08:59 Methylprednisolone (Solu-Medrol) 40 mg IVP Q12H [facility] Last Admin: 04/02/17 09:04 Dose: 40 mg Metoclopramide HCl (Reglan) 10 mg IVP Q6H PRN PRN Reason: Nausea/Vomiting Nicotine (Nicoderm Cq) 1 patch TD DAILY [facility] Last Admin: 04/02/17 09:04 Dose: Not Given Oseltamivir Phosphate (Tamiflu Cap) 75 mg PO BID [facility] Stop: 04/05/17 14:01 Last Admin: 04/02/17 09:04 Dose: 75 mg Quetiapine Fumarate (Seroquel) 100 mg PO HS [facility] Saccharomyces Boulardii (Florastor) 250 mg PO BID [facility] Last Admin: 04/02/17 09:04 Dose: 250 mg - Labs Labs: 04/02/17 08:26 04/02/17 08:26
--- NOTE | 2017-04-02 14:26 | PCM.PYCHPN ---
Psychiatric Progress Note - Psychiatric Progress Note Patient seen today, length of contact: 15 Patient Chief Complaint: "I'm still withdrawing- I feel weak and I'm sleeping on and off." Problems Identified/Issues Discussed: Pt states he feels the methadone is not helping. Pt complains he feels weak, and that he is sleeping on and off. Denies depression, denies suicidal thoughts. Confirmed again a desire to go to out of town rehab. Medication Change: Yes (detox changes daily) Medical Record Reviewed: Yes Mental Status Examination - Cognitive Function Orientation: Person, Place, Situation, Time Memory: Intact - Mood Mood: Anxious - Affect Affect: Constricted - Formal Thought Process Formal Thought Process: No Impairment - Suicidal Ideation Suicidal Ideation: No - Homicidal Ideation Homicidal Ideation: No Goal/Treatment Plan - Goal/Treatment Plan Need for Continued Stay: Discharge may exacerbated symptoms, Severe functional impairment Progress Toward Problem(s) and Goals/Treatment Plan: Methadone detox As needed medications All risks, benefits and alternatives of the meds discussed, and the pt agreed and understood. Supportive therapy and psychoeducation [place] for abstinence Encourage MAT Refer to rehab - for instance [facility] in [place] as he doesn't want local ones. Smoking cessation with [place] Nicotine patch Psych is signing out 15 min
[2017-04-03] MEDS: Sodium Chloride 0.9% 1,000 ML IV SCH ×2 (04:17→15:20)
[2017-04-03] MEDS: Budesonide 0.5 mg/2 ml Inhal Susp UD INH SCH ×2 (07:51→20:28)
[2017-04-03 08:14] LABS: HEMOGLOBIN 15.3 g/dL (12.0-18.0); LYMPH # 0.7 K/uL (1.0-4.3); MEAN CORPUSCULAR HEMOGLOBIN 32.7 pg (27.0-31.0); MEAN PLATELET VOLUME 8.1 fL (7.2-11.7); MONO # 1.2 K/uL (0.0-0.8)
[2017-04-03 08:28] LABS: BASO % 0.1 % (0.0-2.0); LYMPH % 6.6 % (20.0-40.0); MEAN CELL VOLUME 90.8 fL (80.0-94.0); NEUT # 8.2 K/uL (1.8-7.0); NEUT % 81.3 % (50.0-75.0); PLATELET COUNT 288 K/uL (130-400); RBC 4.69 Mil/uL (4.40-5.90)
[2017-04-03 09:01] LABS: ALBUMIN 3.4 g/dL (3.5-5.0); ALT/SGPT 40 U/L (21-72); AST/SGOT 56 U/L (17-59); BLOOD UREA NITROGEN 21 mg/dL (9-20); CALCIUM 8.3 mg/dl (8.6-10.4); GFR AFRICAN-AMERICAN > 60; GFR NON-AFRICAN AMERICAN > 60; MAGNESIUM 2.1 mg/dL (1.6-2.3)
--- NOTE | 2017-04-03 09:22 | CP.PCM.PN ---
Subjective - Date & Time of Evaluation Date of Evaluation: 04/03/17 Time of Evaluation: 07:00 - Subjective Subjective: Medicine Progress Note: Patient was seen and examined at bedside in the AM. Patient states he has only had one episode on diarrhea overnight. He states he continues to have nausea, vomiting and cannot keep much food down. He also states he has a cough but has been refusing the breathing treatments as he believes he does not need them. Objective - Vital Signs/Intake and Output Vital Signs (last 24 hours): Temp Pulse Resp BP Pulse Ox 98.2 F 58 L 20 193/95 H 95 04/03/17 07:30 04/03/17 07:30 04/03/17 07:30 04/03/17 07:30 04/03/17 07:30 Intake and Output: 04/03/17 04/03/17 06:59 18:59 Intake Total 1840 Output Total 1750 Balance 90 - Medications Medications: Current Medications Acetaminophen (Tylenol 325mg Tab) 650 mg PO Q6 PRN PRN Reason: Fever >100.4 F Albuterol/Ipratropium (Duoneb 3 Mg/0.5 Mg (3 Ml) Ud) 3 ml INH RQ6 PRN PRN Reason: Shortness of Breath Amlodipine Besylate (Norvasc) 10 mg PO DAILY [facility] Last Admin: 04/02/17 09:04 Dose: 10 mg Budesonide (Pulmicort Respules) 0.5 mg INH RQ12 [facility] Last Admin: 04/03/17 07:51 Dose: Not Given Enoxaparin Sodium (Lovenox) 40 mg SC DAILY [facility] Last Admin: 04/02/17 09:04 Dose: Not Given Famotidine (Pepcid) 20 mg PO BID [facility] Last Admin: 04/02/17 18:00 Dose: Not Given Sodium Chloride (Sodium Chloride 0.9%) 1,000 mls @ 100 mls/hr IV .Q10H [facility] Last Admin: 04/03/17 04:17 Dose: 100 mls/hr Tigecycline 50 mg/ Sodium (Chloride) 100 mls @ 100 mls/hr IVPB Q12H [facility] Last Admin: 04/03/17 06:02 Dose: 100 mls/hr Methadone HCl (Methadone) 10 mg PO Q24H [facility] PRN Reason: Taper Stop: 04/06/17 08:59 Methylprednisolone (Solu-Medrol) 40 mg IVP Q12H [facility] Last Admin: 04/02/17 21:45 Dose: 40 mg Metoclopramide HCl (Reglan) 10 mg IVP Q6H PRN PRN Reason: Nausea/Vomiting Nicotine (Nicoderm Cq) 1 patch TD DAILY [facility] Last Admin: 04/02/17 09:04 Dose: Not Given Oseltamivir Phosphate (Tamiflu Cap) 75 mg PO BID [facility] Stop: 04/05/17 14:01 Last Admin: 04/02/17 18:42 Dose: 75 mg Quetiapine Fumarate (Seroquel) 100 mg PO HS [facility] Last Admin: 04/02/17 21:45 Dose: 100 mg Saccharomyces Boulardii (Florastor) 250 mg PO BID [facility] Last Admin: 04/02/17 18:00 Dose: Not Given - Labs Labs: 04/03/17 08:09 04/03/17 08:09 - Constitutional Appears: No Acute Distress - Head Exam Head Exam: ATRAUMATIC, NORMAL INSPECTION - Eye Exam Eye Exam: EOMI, Normal appearance - ENT Exam ENT Exam: Mucous Membranes Moist - Respiratory Exam Respiratory Exam: Clear to Ausculation Bilateral, NORMAL BREATHING PATTERN - Cardiovascular Exam Cardiovascular Exam: REGULAR RHYTHM, +S1, +S2, Murmur - GI/Abdominal Exam GI & Abdominal Exam: Soft, Normal Bowel Sounds. absent: Tenderness - Extremities Exam Extremities Exam: Normal Inspection - Neurological Exam Neurological Exam: Alert, Awake, Oriented x3 - Psychiatric Exam Psychiatric exam: Normal Affect, Normal Mood - Skin Skin Exam: Normal Color, Warm Assessment and Plan - Assessment and Plan (Free Text) Assessment: 1.) Sepsis - On admission Bands >10, Tachypneic - Influenza A + - Pneumonia - Lactate 2.2 --> 3.6 --> 1.8 - Procalcitonin 4.93 - ID Consult: Dr. Webster --> help appreciated - Images: * CXR (03/31/17): Hyperinflation suggestive for COPD. Small nodular density at left lung base. B/l hilar prominence. * Chest CT w/o contrast: Left lower lobe consolidation. Multifocal airspace opacities involving the right upper, middle and lower lobes and left lower lobe. Centrilobular pulmonary emphysema with bullous disease. Multifocal small airways disease throughout the right upper lobe. Nonspecific findings. Concerning for an infectious etiology. * CXR (04/01/17) Patchy left basilar opacity. Possible pneumonia. Left apical bullous disease. - Medications * NS @100 cc/hr * Aztreonam 1gm IV Q8H (start 03/31/17) discontinued * Vancomycin 1gm IV Q12H (start 03/31/17) * Tamiflu 75mg PO BID * Moxifloxacin 400mg q24h (started on 04/01/17) discontinued 04/02/17 due to QT prolongation * Tigecycline 50mg q12h started 04/02/17 * Florastor 250mg PO BID * Tylenol 650mg PO Q6H PRN - EKG: NSR, QT prolongation - urine culture: No growth - Blood cultures: No growth - preliminary - f/u procalcitonin tomorrow 04/04/17 2.) COPD exacerbation - Solumedrol 40mg IV Q8H - Pulmicort INH Q12H 3.) Influenza - ID Consult: Dr. Webster --> help appreciated - Droplet precautions - NO WBC, fever - + Influenza A - Medications * Tamiflu 75mg PO BID x 5 days (course ends 04/05/17) * Reglan 10mg q6h PRN for nausea * NS @ 100 cc/hr 4.) Pneumonia - ID Consult: Dr. Webster --> help appreciated - Images * CXR (03/31/17): Hyperinflation suggestive for COPD. Small nodular density at left lung base. B/l hilar prominence. * Chest CT w/o contrast: Left lower lobe consolidation. Multifocal airspace opacities involving the right upper, middle and lower lobes and left lower lobe. Centrilobular pulmonary emphysema with bullous disease. Multifocal small airways disease throughout the right upper lobe. Nonspecific findings. Concerning for an infectious etiology. * CXR (04/01/17) Patchy left basilar opacity. Possible pneumonia. Left apical bullous disease. - Medications: * Aztreonam 1gm IV Q8H (start 03/31/17) - discontinued * Vancomycin 1gm IV Q12H (start 03/31/17) * Moxifloxacin 400mg q24h (started on 04/01/17) - discontinued * Tigecycline 50mg q12h (started 04/02/17) * Tylenol 650mg PO Q6H PRN 5.) Opiate use disorder, severe - Psych consult: Dr Baptiste --> help appreciated - Denies IVDA but systolic murmur - ECHO (03/31/17): EF 45%; The left ventricle is normal size. There is normal left ventricular wall thickness. The left ventricular ejection fraction is within the normal range. Septal hypokinesis. Transmitral doppler flow pattern is Grade I abnormal relaxation pattern. The right ventricle is mildly dilated. RV systolic function is moderately reduced. - Seroquel 50mg PO HS 6.) Tobacco use disorder - Nicotine Patch 7.) New onset HTN - Norvasc 10mg daily 8.) Prophylaxis - Lovenox 40mg SC Daily - SCDs - Pepcid 20mg PO BID - Florastor 250mg PO BID - Droplet Precaution Case discussed with Dr. Sarah Rivera PGY-1
[2017-04-03] MEDS: MethylPREDNISolone 40 mg Vial IVP SCH ×2 (09:30→21:43)
[2017-04-03] MEDS: Saccharomyces Boulardi 250 mg Cap PO SCH ×2 (09:31→18:00)
[2017-04-03] MEDS: Enoxaparin 40 mg Syringe SC SCH (09:34)
[2017-04-03 10:56] LABS: BANDS 3 % (0-2); LYMPHOCYTE 13 % (20-40); MONOCYTE 10 % (0-10); NEUTROPHIL 73 % (50-75); PLATELET ESTIMATE NORMAL (NORMAL); REACTIVE LYMPHOCYTES 1 % (0-0); TOTAL CELLS COUNTED 100
[2017-04-03 10:58] LABS: TOXIC GRANULATION PRESENT
[2017-04-03 10:59] LABS: LARGE PLATELETS PRESENT
[2017-04-03 13:05] LABS: AMYLASE 76 U/L (30-110); LIPASE 83 U/L (23-300)
--- NOTE | 2017-04-03 15:18 | PN ---
DATE: SUBJECTIVE: Patient was seen today. He continues to have diarrhea, he said and he was having some nausea. He was not able to eat. He states his appetite was poor. He is still going through the withdrawal of heroin . PHYSICAL EXAMINATION VITAL SIGNS: T-max is 98, pulse 65, blood pressure 147/81, respirations are 20. HEENT: Head is atraumatic and normocephalic. NECK: Supple. LUNGS: Have bilateral occasional wheeze. HEART: S1 and S2 are regular. ABDOMEN: Soft, nontender. No guarding. No rigidity present. He was on vancomycin and Avelox, but since there was some prolongation of the QT interval, we discontinued Avelox and he was placed on Tygacil and he is also on the flu treatment. So, at this time, since he is on Tygacil, I will discontinue the vancomycin and continue Tygacil as well as the Tamiflu and he needs to be monitored for his chest x-ray and he is also having patchy left basilar infiltrates, left apical bullous disease, possible pneumonia. So, we will need to monitor and see if he improves. Makenzie Webster MD
[2017-04-03] MEDS ORDERED: Iohexol 300 100 ML IJ ONE (16:25)
[2017-04-03] MEDS ORDERED: Iohexol 240 (50 ml) PO ONE (16:30)
--- NOTE | 2017-04-03 22:41 | CP.PCM.PN ---
Subjective - Date & Time of Evaluation Date of Evaluation: 04/03/17 Time of Evaluation: 04:00 - Subjective Subjective: dictated Objective - Vital Signs/Intake and Output Vital Signs (last 24 hours): Temp Pulse Resp BP Pulse Ox 98.3 F 77 20 153/82 H 98 04/03/17 16:04 04/03/17 17:30 04/03/17 16:04 04/03/17 16:04 04/03/17 16:04 Intake and Output: 04/03/17 04/04/17 18:59 06:59 Intake Total 1100 1150 Output Total 200 Balance 900 1150 - Medications Medications: Current Medications Acetaminophen (Tylenol 325mg Tab) 650 mg PO Q6 PRN PRN Reason: Fever >100.4 F Albuterol/Ipratropium (Duoneb 3 Mg/0.5 Mg (3 Ml) Ud) 3 ml INH RQ6 PRN PRN Reason: Shortness of Breath Amlodipine Besylate (Norvasc) 10 mg PO DAILY [facility] Budesonide (Pulmicort Respules) 0.5 mg INH RQ12 [facility] Last Admin: 04/03/17 20:28 Dose: Not Given Enoxaparin Sodium (Lovenox) 40 mg SC DAILY [facility] Last Admin: 04/03/17 09:34 Dose: Not Given Famotidine (Pepcid) 20 mg PO BID [facility] Last Admin: 04/03/17 18:00 Dose: Not Given Sodium Chloride (Sodium Chloride 0.9%) 1,000 mls @ 100 mls/hr IV .Q10H [facility] Last Admin: 04/03/17 15:20 Dose: Not Given Tigecycline 50 mg/ Sodium (Chloride) 100 mls @ 100 mls/hr IVPB Q12H [facility] Last Admin: 04/03/17 18:33 Dose: 100 mls/hr Methadone HCl (Methadone) 10 mg PO Q24H [facility] PRN Reason: Taper Stop: 04/06/17 08:59 Last Admin: 04/03/17 09:30 Dose: 10 mg Methylprednisolone (Solu-Medrol) 40 mg IVP Q12H [facility] Last Admin: 04/03/17 21:43 Dose: 40 mg Metoclopramide HCl (Reglan) 10 mg IVP Q6H PRN PRN Reason: Nausea/Vomiting Last Admin: 01/31/18 09:31 Dose: 10 mg Nicotine (Nicoderm Cq) 1 patch TD DAILY [facility] Last Admin: 04/03/17 09:34 Dose: Not Given Oseltamivir Phosphate (Tamiflu Cap) 75 mg PO BID [facility] Stop: 04/05/17 14:01 Last Admin: 04/03/17 18:34 Dose: 75 mg Quetiapine Fumarate (Seroquel) 100 mg PO HS [facility] Last Admin: 04/03/17 21:44 Dose: 100 mg Saccharomyces Boulardii (Florastor) 250 mg PO BID [facility] Last Admin: 04/03/17 18:00 Dose: Not Given - Labs Labs: 04/03/17 08:09 04/03/17 08:09
--- NOTE | 2017-04-04 02:51 | PN ---
DATE: 04/03/2017 SUBJECTIVE: Everett Bates was seen today. He was feeling lot better today. We had changed the medicine because he was having some palpitations yesterday. Today, he denied any chest problems. He is breathing easier and he seemed slightly better; at least he was not complaining. OBJECTIVE: VITAL SIGNS: T-max was 98.3, pulse 63, blood pressure 153/82, respirations are 20. HEENT: Head is atraumatic, normocephalic. NECK: Supple. LUNGS: Clear. HEART: S1, S2 is regular. ABDOMEN: Soft, nontender. No guarding, no rigidity present. EXTREMITIES: Have no edema. ASSESSMENT: His sepsis is improving. He had flu, and he has pneumonia, chronic obstructive pulmonary disease exacerbation. He also has substance abuse, as he is a heroin addict. At this time, his labs, white count is 10, hemoglobin 15.3, hematocrit 42.6, platelet count is 288. His chemistry shows sodium 127, creatinine is 0.7. He did come in with sepsis. His chest x-ray done on 04/01/2017 showed patchy left basilar opacity, possible pneumonia, left apical bullous disease. PLAN: We will continue present treatment at this time. We will follow. We have started him on Tygacil now and he is also on Tamiflu. Makenzie Webster MD
[2017-04-04 08:00] LABS: ALB/GLOB RATIO 1.1 (1.0-2.1); ALBUMIN 3.2 g/dL (3.5-5.0); ALT/SGPT 30 U/L (21-72); AST/SGOT 26 U/L (17-59); BLOOD UREA NITROGEN 23 mg/dL (9-20); CALCIUM 8.3 mg/dl (8.6-10.4); GFR AFRICAN-AMERICAN > 60; GFR NON-AFRICAN AMERICAN > 60; MAGNESIUM 1.9 mg/dL (1.6-2.3)
[2017-04-04] MEDS: Sodium Chloride 0.9% 1,000 ML IV SCH ×2 (08:03→12:47)
[2017-04-04] MEDS ORDERED: Iohexol 240 (50 ml) PO ONE (09:00)
--- NOTE | 2017-04-04 09:21 | CP.PCM.PN ---
Subjective - Date & Time of Evaluation Date of Evaluation: 04/04/17 Time of Evaluation: 07:00 - Subjective Subjective: Medicine Progress Note: Patient was seen and examined at bedside in the AM. Patient states he has only had one episode on diarrhea overnight. He denies nausea or vomiting and states he was able to eat his liquid diet. He also states he has been asking for the cough medication and using the breathing treatments. Objective - Vital Signs/Intake and Output Vital Signs (last 24 hours): Temp Pulse Resp BP Pulse Ox 97.9 F 58 L 20 191/95 H 97 04/04/17 08:10 04/04/17 08:10 04/04/17 08:10 04/04/17 08:10 04/04/17 08:10 Intake and Output: 04/04/17 04/04/17 06:59 18:59 Intake Total 1950 Balance 1950 - Medications Medications: Current Medications Acetaminophen (Tylenol 325mg Tab) 650 mg PO Q6 PRN PRN Reason: Fever >100.4 F Albuterol/Ipratropium (Duoneb 3 Mg/0.5 Mg (3 Ml) Ud) 3 ml INH RQ6 PRN PRN Reason: Shortness of Breath Amlodipine Besylate (Norvasc) 10 mg PO DAILY [facility] Last Admin: 04/04/17 08:03 Dose: 10 mg Budesonide (Pulmicort Respules) 0.5 mg INH RQ12 [facility] Last Admin: 04/03/17 20:28 Dose: Not Given Enoxaparin Sodium (Lovenox) 40 mg SC DAILY [facility] Last Admin: 04/03/17 09:34 Dose: Not Given Famotidine (Pepcid) 20 mg PO BID [facility] Last Admin: 04/03/17 18:00 Dose: Not Given Sodium Chloride (Sodium Chloride 0.9%) 1,000 mls @ 100 mls/hr IV .Q10H [facility] Last Admin: 04/04/17 08:03 Dose: 100 mls/hr Tigecycline 50 mg/ Sodium (Chloride) 100 mls @ 100 mls/hr IVPB Q12H [facility] Last Admin: 04/04/17 06:22 Dose: 100 mls/hr Methadone HCl (Methadone) 5 mg PO Q24H [facility] PRN Reason: Taper Stop: 04/06/17 08:59 Last Admin: 04/03/17 09:30 Dose: 10 mg Methylprednisolone (Solu-Medrol) 40 mg IVP Q12H [facility] Last Admin: 04/03/17 21:43 Dose: 40 mg Metoclopramide HCl (Reglan) 10 mg IVP Q6H PRN PRN Reason: Nausea/Vomiting Last Admin: 04/03/17 09:31 Dose: 10 mg Nicotine (Nicoderm Cq) 1 patch TD DAILY [facility] Last Admin: 04/03/17 09:34 Dose: Not Given Oseltamivir Phosphate (Tamiflu Cap) 75 mg PO BID [facility] Stop: 04/05/17 14:01 Last Admin: 04/03/17 18:34 Dose: 75 mg Quetiapine Fumarate (Seroquel) 100 mg PO HS [facility] Last Admin: 04/03/17 21:44 Dose: 100 mg Saccharomyces Boulardii (Florastor) 250 mg PO BID [facility] Last Admin: 04/03/17 18:00 Dose: Not Given - Labs Labs: 04/03/17 08:09 04/04/17 07:27 - Constitutional Appears: No Acute Distress - Head Exam Head Exam: ATRAUMATIC, NORMAL INSPECTION - Eye Exam Eye Exam: EOMI, Normal appearance - ENT Exam ENT Exam: Mucous Membranes Moist - Respiratory Exam Respiratory Exam: Clear to Ausculation Bilateral, NORMAL BREATHING PATTERN - Cardiovascular Exam Cardiovascular Exam: REGULAR RHYTHM, +S1, +S2, Murmur - GI/Abdominal Exam GI & Abdominal Exam: Soft, Normal Bowel Sounds. absent: Tenderness - Extremities Exam Extremities Exam: Normal Inspection - Neurological Exam Neurological Exam: Alert, Awake, Oriented x3 - Psychiatric Exam Psychiatric exam: Normal Affect, Normal Mood - Skin Skin Exam: Normal Color, Warm Assessment and Plan - Assessment and Plan (Free Text) Assessment: 1.) Sepsis - On admission Bands >10, Tachypneic - Influenza A + - Pneumonia - Lactate 2.2 --> 3.6 --> 1.8 - Procalcitonin 4.93 --> - procalcitonin 0.11 (04/04/17) - ID Consult: Dr. Webster --> help appreciated - Images: * CXR (03/31/17): Hyperinflation suggestive for COPD. Small nodular density at left lung base. B/l hilar prominence. * Chest CT w/o contrast: Left lower lobe consolidation. Multifocal airspace opacities involving the right upper, middle and lower lobes and left lower lobe. Centrilobular pulmonary emphysema with bullous disease. Multifocal small airways disease throughout the right upper lobe. Nonspecific findings. Concerning for an infectious etiology. * CXR (04/01/17) Patchy left basilar opacity. Possible pneumonia. Left apical bullous disease. - Medications * NS @100 cc/hr * Tamiflu 75mg PO BID - Last Day 04/05/17 * Tigecycline 50mg q12h started 04/02/17 * Florastor 250mg PO BID * Tylenol 650mg PO Q6H PRN * Aztreonam 1gm IV Q8H (start 03/31/17) discontinued * Vancomycin 1gm IV Q12H (start 03/31/17) discontinued on 04/02/17 * Moxifloxacin 400mg q24h (started on 04/01/17) discontinued 04/02/17 due to QT prolongation - EKG: NSR, QT prolongation - urine culture: No growth - Blood cultures: No growth - preliminary 2.) COPD exacerbation - Solumedrol 40mg IV Q8H - Pulmicort INH Q12H 3.) Influenza - ID Consult: Dr. Webster --> help appreciated - Droplet precautions - NO WBC, fever - + Influenza A - Medications * Tamiflu 75mg PO BID x 5 days (course ends 04/05/17) * Reglan 10mg q6h PRN for nausea * NS @ 100 cc/hr 4.) Pneumonia - ID Consult: Dr. Webster --> help appreciated - Images * CXR (03/31/17): Hyperinflation suggestive for COPD. Small nodular density at left lung base. B/l hilar prominence. * Chest CT w/o contrast: Left lower lobe consolidation. Multifocal airspace opacities involving the right upper, middle and lower lobes and left lower lobe. Centrilobular pulmonary emphysema with bullous disease. Multifocal small airways disease throughout the right upper lobe. Nonspecific findings. Concerning for an infectious etiology. * CXR (04/01/17) Patchy left basilar opacity. Possible pneumonia. Left apical bullous disease. - Medications: * Aztreonam 1gm IV Q8H (start 03/31/17) - discontinued * Vancomycin 1gm IV Q12H (start 03/31/17) - discontinued * Moxifloxacin 400mg q24h (started on 04/01/17) - discontinued * Tigecycline 50mg q12h (started 04/02/17) * Tylenol 650mg PO Q6H PRN - Per Dr. Webster to continue Tigecycline for 7 days - f/u Chest X-ray 04/05/17 5.) Opiate use disorder, severe - Psych consult: Dr Baptiste --> help appreciated - Denies IVDA but systolic murmur - ECHO (03/31/17): EF 45%; The left ventricle is normal size. There is normal left ventricular wall thickness. The left ventricular ejection fraction is within the normal range. Septal hypokinesis. Transmitral doppler flow pattern is Grade I abnormal relaxation pattern. The right ventricle is mildly dilated. RV systolic function is moderately reduced. - Seroquel 50mg PO HS 6.) Tobacco use disorder - Nicotine Patch 7.) New onset HTN - Norvasc 10mg daily 8.) Prophylaxis - Lovenox 40mg SC Daily - SCDs - Pepcid 20mg PO BID - Florastor 250mg PO BID - Droplet Precaution - Case Management Consult: Patient states he would like to go to Physical Therapy Rehab Case discussed with Dr. Smith. Araceli Rivera PGY-1
[2017-04-04] MEDS: Saccharomyces Boulardi 250 mg Cap PO SCH ×2 (10:22→17:50)
[2017-04-04] MEDS: MethylPREDNISolone 40 mg Vial IVP SCH ×2 (10:22→21:57)
[2017-04-04] MEDS: Enoxaparin 40 mg Syringe SC SCH (12:46)
[2017-04-04] MEDS ORDERED: Iodixanol 320 MG/ML 100 ML BOTTLE IV ONE (15:41)
[2017-04-04 16:02] LABS: PH,URINE 6.5 (5.0-8.0); URINE BILIRUBIN NEGATIVE (NEGATIVE); URINE BLOOD NEGATIVE (NEGATIVE); URINE CLARITY Clear (Clear); URINE COLOR YELLOW (YELLOW); URINE GLUCOSE (UA) NEGATIVE (Normal); URINE LEUKOCYTE ESTERASE NEGATIVE Leu/uL (Negative); URINE NITRATE NEGATIVE (NEGATIVE); URINE PROTEIN NEGATIVE (NEGATIVE); URINE UROBILINOGEN 0.2 mg/dL (0.2-1.0)
--- NOTE | 2017-04-04 16:56 | CT ---
PROCEDURE: CT Abdomen and Pelvis with oral and IV contrast. HISTORY: abdominal pain COMPARISON: None available. TECHNIQUE: Contiguous axial images of the abdomen and pelvis. Oral and IV contrast was administered. Coronal and Sagittal reformats generated and reviewed. Contrast dose: 100 cc Visipaque 320 Radiation dose: Total exam DLP = 200.27 mGy-cm. This CT exam was performed using one or more of the following dose reduction techniques: Automated exposure control, adjustment of the mA and/or kV according to patient size, and/or use of iterative reconstruction technique. FINDINGS: Examination markedly limited due to paucity of intra-abdominal and intrapelvic fat. LOWER THORAX: Partially imaged large lower lobe bulla. Emphysematous emphysematous changes. Patchy ground-glass opacities bilaterally. Dependent consolidation, left lung base. LIVER: Hypodense region adjacent to the falciform ligament, possibly focal fatty infiltration. GALLBLADDER AND BILE DUCTS: Unremarkable. PANCREAS: Unremarkable. SPLEEN: Unremarkable. ADRENALS: Unremarkable. KIDNEYS AND URETERS: The kidneys enhance symmetrically. No hydronephrosis or obstructing renal calculus. BLADDER: Urinary bladder distension, otherwise grossly unremarkable. REPRODUCTIVE: Enlarged heterogeneous prostate gland. APPENDIX: The appendix is not identified. No secondary signs of acute appendicitis appreciated. BOWEL: The stomach is nondistended. Inadequate oral contrast ingested. Suboptimal opacification of bowel loops limits evaluation for bowel pathology. No evidence of bowel obstruction. PERITONEUM: No significant free fluid. No definite free air. LYMPH NODES: No bulky lymphadenopathy identified. VASCULATURE: No aortic aneurysm. BONES: No acute osseous abnormality is detected. OTHER FINDINGS: None. IMPRESSION: Examination markedly limited due to paucity of intra-abdominal and intrapelvic fat. Suboptimal opacification of bowel loops with oral contrast also limits study. No acute findings Small focal region of hypoattenuation adjacent to the falciform ligament, possibly focal fatty infiltration. Enlarged heterogeneous prostate gland. Recommend correlation with PSA. Partially imaged large lower lobe bulla. Emphysematous emphysematous changes. Patchy ground-glass opacities bilaterally. Dependent consolidation, left lung base.
--- NOTE | 2017-04-04 17:03 | RAD ---
HISTORY: pneumonia COMPARISON: 04/01/[address] chest without contrast March 31 1017 TECHNIQUE: Chest PA and lateral FINDINGS: LUNGS: Multiple lung parenchymal lucencies compatible with bullous emphysematous changes lung greater than right -similar. No complicating pneumothorax appreciated. The previously referenced patchy opacities in the lungs are much less conspicuous on this radiograph and CT the previously referenced patchy left basilar opacity is also slightly less conspicuous. No increasing areas or new areas of consolidation appreciated PLEURA: No significant pleural effusion identified. No pneumothorax apparent. CARDIOVASCULAR: Possible minimal left ventricular enlargement -no change. No pulmonary venous congestion appreciated OSSEOUS STRUCTURES: No significant abnormalities. VISUALIZED UPPER ABDOMEN: Normal. OTHER FINDINGS: None. IMPRESSION: Bullous emphysematous changes. Previously referenced patchy infiltrates are very subtle on conventional radiographs. Current appearance suggests perhaps some slight clearance. No no disease progression suggested. No suspect masses noted
--- NOTE | 2017-04-04 20:13 | CP.PCM.PN ---
Subjective - Date & Time of Evaluation Date of Evaluation: 04/04/17 Time of Evaluation: 05:30 - Subjective Subjective: dictated Objective - Vital Signs/Intake and Output Vital Signs (last 24 hours): Temp Pulse Resp BP Pulse Ox 98.2 F 68 20 150/94 H 95 04/04/17 17:16 04/04/17 17:16 04/04/17 17:16 04/04/17 17:16 04/04/17 17:16 Intake and Output: 04/04/17 04/05/17 18:59 06:59 Intake Total 1000 Output Total 900 Balance 100 - Medications Medications: Current Medications Acetaminophen (Tylenol 325mg Tab) 650 mg PO Q6 PRN PRN Reason: Fever >100.4 F Albuterol/Ipratropium (Duoneb 3 Mg/0.5 Mg (3 Ml) Ud) 3 ml INH RQ6 PRN PRN Reason: Shortness of Breath Amlodipine Besylate (Norvasc) 10 mg PO DAILY [facility] Last Admin: 04/04/17 10:22 Dose: 10 mg Budesonide (Pulmicort Respules) 0.5 mg INH RQ12 [facility] Last Admin: 04/03/17 20:28 Dose: Not Given Enoxaparin Sodium (Lovenox) 40 mg SC DAILY [facility] Last Admin: 04/04/17 12:46 Dose: Not Given Famotidine (Pepcid) 20 mg PO BID [facility] Last Admin: 04/04/17 17:50 Dose: 20 mg Sodium Chloride (Sodium Chloride 0.9%) 1,000 mls @ 100 mls/hr IV .Q10H [facility] Last Admin: 04/04/17 12:47 Dose: Not Given Tigecycline 50 mg/ Sodium (Chloride) 100 mls @ 100 mls/hr IVPB Q12H [facility] Last Admin: 04/04/17 19:23 Dose: 100 mls/hr Methadone HCl (Methadone) 5 mg PO Q24H [facility] PRN Reason: Taper Stop: 04/06/17 08:59 Last Admin: 04/04/17 10:22 Dose: 5 mg Methylprednisolone (Solu-Medrol) 40 mg IVP Q12H [facility] Last Admin: 04/04/17 10:22 Dose: 40 mg Metoclopramide HCl (Reglan) 10 mg IVP Q6H PRN PRN Reason: Nausea/Vomiting Last Admin: 04/03/17 09:31 Dose: 10 mg Nicotine (Nicoderm Cq) 1 patch TD DAILY [facility] Last Admin: 04/04/17 12:46 Dose: Not Given Oseltamivir Phosphate (Tamiflu Cap) 75 mg PO BID [facility] Stop: 04/05/17 14:01 Last Admin: 04/04/17 17:58 Dose: 75 mg Quetiapine Fumarate (Seroquel) 100 mg PO [facility] Last Admin: 04/03/17 21:44 Dose: 100 mg Saccharomyces Boulardii (Florastor) 250 mg PO BID [facility] Last Admin: 04/04/17 17:50 Dose: 250 mg - Labs Labs: 04/03/17 08:09 04/04/17 07:27
[2017-04-04 21:20] LABS: CREATININE, RANDOM URINE 22.6 mg/dL
[2017-04-04] MEDS ORDERED: Sodium Chloride 0.9% 1,000 ML IV ONE (21:36)
--- NOTE | 2017-04-04 21:57 | CARD ---
APPROVED REPORT EKG Measurement Heart [id number] [id number] <Conclusion> Normal sinus rhythm Moderate voltage criteria for LVH, may be normal variant Borderline ECG
[2017-04-04] MEDS: Budesonide 0.5 mg/2 ml Inhal Susp UD INH SCH (22:06)
--- NOTE | 2017-04-05 01:53 | PN ---
DATE: 04/04/2017 SUBJECTIVE: The patient was seen today. The resident told me that he was doing better and she was planning to discharge him, but the patient says he has been very weak. He hardly has any muscle strength. He has no strength left. He feels he has generalized weakness because of the flu and unable to do much. He did have an x-ray done today, so we will follow that. PHYSICAL EXAMINATION VITAL SIGNS: T-max is 98.2, pulse 68, blood pressure is 150/94, and respirations are 20. GENERAL: He is coughing a lot and he was also sitting with a bin near him, as if he was nauseous. HEENT: Head is atraumatic, normocephalic. NECK: Supple. NEUROLOGIC: He is alert and oriented. LUNGS: No wheezing present. Lungs are sounding better. No rhonchi. HEART: S1 and S2 is regular. ABDOMEN: Remains soft and nontender. No guarding. No rigidity present. EXTREMITIES: Have no edema. LABORATORY DATA: White count is 10, hemoglobin is 15.3, hematocrit 42.6, and platelet count is 288. His BUN is 23, creatinine 0.6. He did have an x-ray today and x-ray report shows he has bullous emphysematous lesions, previously referred patchy infiltrates are very subtle on conventional radiograph. Current appearance suggest perhaps some slight clearance. No new disease progression suspected. No suspicious masses noted. He also had abdominal and pelvic CT today, so lets see. It shows due to positive intraabdominal and intrapelvic fat, suboptimal opacification of bowel loops with oral contrast also limits study. No acute findings. Small focal regions of hypo-attenuation adjacent to the falciform ligament, possibly focal fatty infiltration, and large heterogeneous prostate gland; recommend correlation with PSA, partial image, large lower bulla emphysematous changes, patchy ground-glass opacities bilaterally, dependent consolidation left lung base. So, he does have patchy ground-glass opacity still on the lungs and he had flu. I would give him chance to recuperate a little more, we will discuss with the primary attending and see. He is allergic to amoxicillin and he is getting Tygacil, and he is on Tamiflu; so perhaps will need little longer time to recuperate. Makenzie Webster MD
--- NOTE | 2017-04-05 04:09 | CARD ---
APPROVED REPORT EKG Measurement Heart [id number] [place] 126P67 [id number] <Conclusion> Sinus bradycardia Moderate voltage criteria for LVH, may be normal variant Borderline ECG
--- NOTE | 2017-04-05 06:37 | CON ---
DATE: NEPHROLOGY CONSULTATION LOCATION: [facility]. HISTORY OF PRESENT ILLNESS: This is a 57-year-old male with past medical history of COPD, heroin use, presented to ED with shortness of breath and cough for previous 3 days, found to be influenza positive. Nephrology is being consulted for hyponatremia. The patient is complaining of cough with greenish sputum production that was associated with subjective fever, chills, and body aches per H and P. Since being here, the patient has been having diarrhea and vomiting, which has improved today; has not been able to hold on p.o. diet, but is attempting to eat this evening for the first time after several days; feels like he is withdrawing from heroin; the patient otherwise reports feeling of dizziness on ambulation currently; otherwise urinating normally. PAST MEDICAL HISTORY: As above. SOCIAL HISTORY: Half pack to one pack per day smoker for the past 40 years. Heroin use via snorting. Denies IVDA. 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 REVIEW OF SYSTEMS: CONSTITUTIONAL: Has been losing weight lately; night sweats during current admission. HEENT: Feeling of fullness in right ear. RESPIRATORY: Cough; gets short of breath when walking fast, otherwise not. CARDIOVASCULAR: Denies chest pain or palpitations. GI: As per HPI. : No urinary complaints. MUSCULOSKELETAL: He does not use any pain medications. EXTREMITIES: Reports having right big toe hole with bluish discoloration recently. PSYCHIATRIC: Denies depression or anxiety. NEUROLOGIC: Occasional numbness in feet. PHYSICAL EXAMINATION: VITAL SIGNS: This evening, blood pressure 150/94, heart rate 68, respirations 20, temperature 98.2, and O2 saturation 95% on room air. GENERAL: No distress, lying comfortably in bed, conversing coherently in full sentences. HEENT: Moist mucous membranes. Nonicteric. No cervical lymphadenopathy. Appears somewhat cachetic. RESPIRATORY: Lungs, clear to auscultation bilaterally, but with decreased areas of air movement. CARDIOVASCULAR: Heart sounds S1 and S2 normal. No murmurs. No gallops. No rubs. GI: Abdomen soft, nondistended, mildly tender. : No overt bladder distention. SKIN: Warm. No cyanosis. EXTREMITIES: No lower leg edema. NEURO: No tremor of outstretched hands. No numbness of feet. PSYCHIATRIC: Normal mood. Normal affect. LABORATORY DATA: This morning, CBC: WBC 10.0, hemoglobin 15.3, hematocrit 42.6, and platelets 288. Chemistry panel, sodium 126 decreased from 131 two days ago, potassium 4.5, chloride 98, bicarb 22, BUN 23, creatinine 0.6, glucose 111, calcium 8.3, phosphorus 3.2, magnesium 1.9, albumin 3.2. Urine studies, urine osmolality 523, urine sodium 144. CAT scan of chest done four days ago showing areas of bullous emphysematous changes, also mentioning multifocal opacities in the right upper lobe and right middle lobe, posterior segment, right lower lobe, and dense consolidation in left lower lobe. MEDICATIONS: Currently included Solu-Medrol 40 mg q.12 hours, Tylenol p.r.n., albuterol p.r.n., amlodipine 10 mg daily, budesonide inhaled q.12 hours, Lovenox subcu daily, famotidine 20 mg p.o. b.i.d., methadone 5 mg q.24 hours, Reglan p.r.n., nicotine patch, Tamiflu 75 mg b.i.d., Seroquel 100 mg at bedtime, Florastor 250 mg b.i.d., and NS at 100 mL per hour, and tigecycline 50 mg q.12 hours. ASSESSMENT AND PLAN: 1. Hyponatremia. The patient giving history that is consistent with gastrointestinal losses and possible volume depletion; urine lyte showing high urine osmolality, which can be seen with either volume depletion or syndrome of inappropriate antidiuretic hormone secretion; high urine sodium goes against volume depletion; however, high urine sodium is in the setting of the patient receiving normal saline and with high urine osmolality reflects the patient sodium unlikely hanging onto free water as this indicative of his worsening hyponatremia. We will try to challenge with normal saline bolus 500 mL per hour for the next 2 hours; our goal is to give volume so as to shut off antidiuretic hormone and produce a water diuresis. 2. Azotemia likely due to systemic steroid administration rather than prerenal etiology, but we will look for improvement with intravenous fluids challenge. 3. Hypertension. The patient has never followed with any physician and denies any previous diagnosis of hypertension; current high blood pressure readings may be due to opioid withdrawal; we would now treat aggressively on this, systolic blood pressures consistently high (greater than 170), can use p.r.n. clonidine 0.1 mg q.8 hours. Thank you for this consult. We will be following closely. Efrain Alexander MD
[2017-04-05 07:55] LABS: ALBUMIN 3.3 g/dL (3.5-5.0); ALT/SGPT 34 U/L (21-72); AST/SGOT 16 U/L (17-59); BASO % 0.3 % (0.0-2.0); BLOOD UREA NITROGEN 20 mg/dL (9-20); CALCIUM 8.2 mg/dl (8.6-10.4); EOS % 0.1 % (0.0-4.0); GFR AFRICAN-AMERICAN > 60; GFR NON-AFRICAN AMERICAN > 60; HEMOGLOBIN 15.7 g/dL (12.0-18.0); LYMPH # 0.8 K/uL (1.0-4.3); LYMPH % 10.7 % (20.0-40.0); MAGNESIUM 2.1 mg/dL (1.6-2.3); MEAN CELL VOLUME 91.6 fL (80.0-94.0); MEAN CORPUSCULAR HEMOGLOBIN 31.7 pg (27.0-31.0); MEAN CORPUSCULAR HGB CONC 34.7 g/dL (33.0-37.0); MEAN PLATELET VOLUME 8.3 fL (7.2-11.7); MONO % 12.2 % (0.0-10.0); NEUT # 6.1 K/uL (1.8-7.0); NEUT % 76.7 % (50.0-75.0); NRBC % 0.2 % (0.0-2.0); RBC 4.94 Mil/uL (4.40-5.90); RED CELL DISTRIBUTION WIDTH 14.1 % (11.5-14.5); WHITE BLOOD COUNT 7.9 K/uL (4.8-10.8)
--- NOTE | 2017-04-05 09:05 | RAD ---
Chest x-ray two views History: Pneumonia. Comparison: 04/04/2017 Findings: Hyperinflation suggestive for COPD and or emphysematous changes. No gross focal infiltrate or effusion. Heart size within normal limits. Impression: No gross focal infiltrate or effusion. Clinical correlation.
[2017-04-05] MEDS: MethylPREDNISolone 40 mg Vial IVP SCH (09:18)
[2017-04-05] MEDS: Saccharomyces Boulardi 250 mg Cap PO SCH ×2 (09:19→17:06)
[2017-04-05] MEDS: Enoxaparin 40 mg Syringe SC SCH (09:19)
[2017-04-05 14:08] LABS: OSMOLALITY,URINE 604 mosm/kg (300-1000)
--- NOTE | 2017-04-05 15:45 | CP.PCM.DIS ---
Provider - Provider Date of Admission: 03/31/17 11:14 Attending physician: Nancy Smith DO Time Spent in preparation of Discharge (in minutes): 45 Hospital Course - Lab Results Lab Results: Micro Results 03/31/17 09:39 Blood Blood Culture - Preliminary NO GROWTH AFTER 4 DAYS 03/31/17 09:39 Blood Blood Culture - Preliminary NO GROWTH AFTER 4 DAYS 04/01/17 09:32 Throat Group A Strep Throat Culture - Final NO BETA STREP GROUP A ISOLATED. 03/31/17 15:47 Urine,Clean Catch Urine Culture - Final No Growth (<1,000 CFU/ML) Most Recent Lab Values WBC 7.9 K/uL (4.8-10.8) 04/05/17 07:35 RBC 4.94 Mil/uL (4.40-5.90) 04/05/17 07:35 Hgb 15.7 g/dL (12.0-18.0) 04/05/17 07:35 Hct 45.3 % (35.0-51.0) 04/05/17 07:35 MCV 91.6 fL (80.0-94.0) 04/05/17 07:35 MCH 31.7 pg (27.0-31.0) H 04/05/17 07:35 MCHC 34.7 g/dL (33.0-37.0) 04/05/17 07:35 RDW 14.1 % (11.5-14.5) 04/05/17 07:35 Plt Count 287 K/uL (130-400) 04/05/17 07:35 MPV 8.3 fL (7.2-11.7) 04/05/17 07:35 Neut % (Auto) 76.7 % (50.0-75.0) H 04/05/17 07:35 Lymph % (Auto) 10.7 % (20.0-40.0) L 04/05/17 07:35 [place] % (Auto) 12.2 % (0.0-10.0) H 04/05/17 07:35 Eos % (Auto) 0.1 % (0.0-4.0) 04/05/17 07:35 Baso % (Auto) 0.3 % (0.0-2.0) 04/05/17 07:35 Neut # (Auto) 6.1 K/uL (1.8-7.0) 04/05/17 07:35 Lymph # (Auto) 0.8 K/uL (1.0-4.3) L 04/05/17 07:35 [place] # (Auto) 1.0 K/uL (0.0-0.8) H 04/05/17 07:35 Eos # (Auto) 0.0 K/uL (0.0-0.7) 04/05/17 07:35 Baso # (Auto) 0.0 K/uL (0.0-0.2) 04/05/17 07:35 Neutrophils % (Manual) 73 % (50-75) 04/03/17 08:09 Band Neutrophils % 3 % (0-2) H 04/03/17 08:09 Lymphocytes % (Manual) 13 % (20-40) L 04/03/17 08:09 Reactive Lymphs % 1 % (0-0) H 04/03/17 08:09 Monocytes % (Manual) 10 % (0-10) 04/03/17 08:09 Toxic Granulation Present 04/03/17 08:09 Platelet Estimate Normal (NORMAL) 04/03/17 08:09 RBC Morphology Normal 04/02/17 08:26 Large Platelets Present 04/03/17 08:09 pO2 43 mm/Hg (30-55) 04/01/17 00:15 VBG pH 7.50 (7.32-7.43) H 04/01/17 00:15 VBG pCO2 31 mmHg (40-60) L 04/01/17 00:15 VBG HCO3 25.9 mmol/L 04/01/17 00:15 VBG Total CO2 25.2 mmol/L (22-28) 04/01/17 00:15 VBG O2 Sat (Calc) 85.2 % (40-65) H 04/01/17 00:15 VBG Base Excess 1.7 mmol/L (0.0-2.0) 04/01/17 00:15 VBG Potassium 4.4 mmol/L (3.6-5.2) 04/01/17 00:15 Sodium 132.0 mmol/l (132-148) 04/01/17 00:15 Chloride 97.0 mmol/L (98-107) L 04/01/17 00:15 Glucose 133 mg/dl (75-110) H 04/01/17 00:15 Lactate 1.8 mmol/L (0.7-2.1) 04/01/17 00:15 Sodium 130 mmol/L (132-148) L 04/05/17 07:35 Potassium 4.2 mmol/L (3.6-5.2) 04/05/17 07:35 Chloride 95 mmol/L (98-107) L 04/05/17 07:35 Carbon Dioxide 24 mmol/L (22-30) 04/05/17 07:35 Anion Gap 15 (10-20) 04/05/17 07:35 BUN 20 mg/dL (9-20) 04/05/17 07:35 Creatinine 0.7 mg/dL (0.8-1.5) L 04/05/17 07:35 Est GFR ( Amer) > 60 04/05/17 07:35 Est GFR (Non-Af Amer) > 60 04/05/17 07:35 Random Glucose 110 mg/dL (75-110) 04/05/17 07:35 Calcium 8.2 mg/dl (8.6-10.4) L 04/05/17 07:35 Phosphorus 4.3 mg/dL (2.5-4.5) 04/05/17 07:35 Magnesium 2.1 mg/dL (1.6-2.3) 04/05/17 07:35 Total Bilirubin 0.9 mg/dL (0.2-1.3) 04/05/17 07:35 AST 16 U/L (17-59) L D 04/05/17 07:35 ALT 34 U/L (21-72) 04/05/17 07:35 Alkaline Phosphatase 51 U/L (38-126) 04/05/17 07:35 Troponin I < 0.0120 ng/mL (0.00-0.120) 03/31/17 10:01 NT-Pro-B Natriuret Pep 182 pg/mL (0-900) 03/31/17 10:01 Total Protein 6.5 g/dL (6.3-8.3) 04/05/17 07:35 Albumin 3.3 g/dL (3.5-5.0) L 04/05/17 07:35 Globulin 3.2 gm/dL (2.2-3.9) 04/05/17 07:35 Albumin/Globulin Ratio 1.0 (1.0-2.1) 04/05/17 07:35 Amylase 76 U/L (30-110) 04/03/17 08:09 Lipase 83 U/L (23-300) 04/03/17 08:09 Procalcitonin 0.11 NG/ML (0.19-0.49) L 04/04/17 07:27 Venous Blood Potassium 4.4 mmol/L (3.6-5.2) 04/01/17 00:15 Urine Color Yellow (YELLOW) 04/04/17 14:48 Urine Clarity Clear (Clear) 04/04/17 14:48 Urine pH 6.5 (5.0-8.0) 04/04/17 14:48 Ur Specific [place] 1.015 (1.003-1.030) 04/04/17 14:48 Urine Protein Negative mg/dL (NEGATIVE) 04/04/17 14:48 Urine Glucose (UA) Negative mg/dL (Normal) 04/04/17 14:48 Urine Ketones Negative mg/dL (NEGATIVE) 04/04/17 14:48 Urine Blood Negative (NEGATIVE) 04/04/17 14:48 Urine Nitrate Negative (NEGATIVE) 04/04/17 14:48 Urine Bilirubin Negative (NEGATIVE) 04/04/17 14:48 Urine Urobilinogen 0.2 mg/dL (0.2-1.0) 04/04/17 14:48 Urine WBC (Auto) 1 /hpf (0-5) 03/31/17 14:13 Ur Leukocyte Esterase Negative Wendy/uL (Negative) 04/04/17 14:48 Urine RBC (Auto) 4 /hpf (0-3) H 03/31/17 14:13 Ur Squamous Epith Cells < 1 /hpf (0-5) 03/31/17 14:13 Urine Osmolality 604 mosm/kg (300-1000) 04/05/17 13:52 Ur Random Creatinine 22.6 mg/dL 04/04/17 14:48 U Random Total Protein 27.0 mg/dL (0.0-12.0) H 04/04/17 14:48 Ur Random Sodium 112 mmol/L 04/05/17 13:52 Urine Microalbumin 104.3 mg/L (0.0-16.6) H 04/04/17 14:48 Urine Chloride 139 mmol/L (32-290) 04/04/17 14:48 Urine Opiates Screen Positive (NEGATIVE) H 03/31/17 14:13 Urine Methadone Screen Negative (NEGATIVE) 03/31/17 14:13 Ur Barbiturates Screen Negative (NEGATIVE) 03/31/17 14:13 Ur Phencyclidine Scrn Negative (NEGATIVE) 03/31/17 14:13 Ur Amphetamines Screen Negative (NEGATIVE) 03/31/17 14:13 U Benzodiazepines Scrn Negative (NEGATIVE) 03/31/17 14:13 U Oth Cocaine Metabols Positive (NEGATIVE) H 03/31/17 14:13 U Cannabinoids Screen Negative (NEGATIVE) 03/31/17 14:13 Influenza Typ A,B (EIA) Pos for influenza a (NEGATIVE) H 03/31/17 09:30 Ur L.pneumophila Ag Negative (NEGATIVE) 04/01/17 07:10 Mycoplasma pneumon IgM Negative (NEGATIVE) 04/02/17 12:03 M.pneumoniae IgG Titer 4.37 (<=0.90) H 04/01/17 08:05 Grp A Beta Strep Ag Negative (NEGATIVE) 04/01/17 09:32 - Hospital Course Hospital Course: Discharge Summary PMD: None Consults: Psychiatry (Dr. Wharton), ID (Dr. Webster) PRINCIPAL DISCHARGE DIAGNOSES: CC: "It's hard to breathe and my whole body hurts" HISTORY OF PRESENT ILLNESS: Patient is a 57 year old male, with PMHx of COPD, Tobacco abuse disorder, and opioid use disorder, presents to [facility] ED for shortness of breath and cough. Patient reports for last 3 days, he has had a productive cough with green sputum which has become associated with subjective fever, chills, and bodyaches. The patient reports that today the symptoms are now associated with non-bloody diarrhea. He states he can no longer take more than a few steps without becoming SOB, which he normally has no problem walking long distances. He denies needing increased pillows for sleep recently. Patient reports he has abused heroin "off/on for 30 + years." He states his typical use is 5 bags/day via snorting, with last use 2 days ago. He denies IVDA. He states he has done numerous rehab/inpatient visits in the past. He denies getting flu shot this year, knows no sick contacts, and states he has no PMD. He is aware of COPD but denies ever being given inhaler or other medication. He denies vomiting, travel, GI bleeding, chest pain, rash, abdominal pain, neck pain. PMD: none PMHx: COPD, Tobacco abuse disorder, and opioid use disorder PSHx: denies Allergies: PCN (swelling of throat) SHx: 1/2 - 1 ppd x 40 years, denies alcohol; heroin use (as above); employment - [employer] Meds: none SUMMARY OF COURSE: Everett Bates is a 57-year-old female who was admitted to [facility] on 03/31/2017-04/05/2017 for sepsis. Her past medical history of note includes COPD, tobacco use disorder and opioid use disorder. While at the hospital, he was given antibiotics and he had imaging done. Imaging results are stated below. Psychiatry and Infectious Disease were consulted. Psychiatry consult, Dr. Baptiste, started him on methadone detox. ID consult, Dr. Webster, gave him antibiotics and monitored him. He is to follow up with the [facility] ([phone]) which is located in the basement of [facility]. He should take all his medication as prescribed. Imaging: CXR (03/31/17): Hyperinflation suggestive for COPD. Small nodular density at left lung base. B/l hilar prominence. ECHO (03/31/17): EF 45%; The left ventricle is normal size. There is normal left ventricular wall thickness. The left ventricular ejection fraction is within the normal range. Septal hypokinesis. Transmitral doppler flow pattern is Grade I abnormal relaxation pattern. The right ventricle is mildly dilated. TV systolic function is moderately reduced. Chest CT w/o contrast (03/31/17): Left lower lobe consolidation. Multifocal airspace opacities involving the right upper, middle and lower lobes and left lower lobe. Centrilobular pulmonary emphysema with bullous disease. Multifocal small airways disease throughout the right upper lobe. Nonspecific findings. Concerning for an infectious etiology. EKG (03/31/17): Normal sinus rhythm. Nonspecific T wave abnormality. Abnormal ECG. CXR (04/01/17): Patchy left basilar opacity. Possible pneumonia. Left apical bullous disease. EKG (04/03/17): Normal sinus rhythm. Moderate voltage criteria for LVH, may be normal variant. Borderline ECG. Abdomen/Pelvis CT (04/04/17): No acute findings. Small focal region of hypoattenuation adjacent to the falciform ligament, possibly focal fatty infiltration. Enlarged heterogenous prostate gland. Recommended correlation with PSA. Emphysematous consolidation, left lung base. CXR (04/04/17): Bullous emphysematous changes. Previously referenced patchy infiltrates are very subtle. Current appearance suggests some slight clearance. No disease progression suggested. No suspect masses noted. CXR (04/05/17): No gross focal infiltration or effusion. Clinical correlation. DISCHARGE MEDICATIONS Albuterol/Ipratropium [Duoneb] 3 ml IH Q6 prn Amlodipine [Norvasc] 5 mg PO daily Budesonide [Pulmicort Respules] 0.5 mg IH Q12 Quetiapine [Seroquel] 100 mg PO HS Discharge Exam - Head Exam Head Exam: ATRAUMATIC, NORMAL INSPECTION - Eye Exam Eye Exam: EOMI, Normal appearance, PERRL. absent: Periorbital tenderness Pupil Exam: NORMAL ACCOMODATION, PERRL. absent: Irregular, Unequal - ENT Exam ENT Exam: Mucous Membranes Moist, Normal Oropharynx - Respiratory Exam Respiratory Exam: Clear to PA & Lateral, NORMAL BREATHING PATTERN, UNREMARKABLE. absent: Rales, Rhonchi - Cardiovascular Exam Cardiovascular Exam: REGULAR RHYTHM, RRR, +S1, +S2 - GI/Abdominal Exam GI & Abdominal Exam: Normal Bowel Sounds, Unremarkable. absent: Hypoactive Bowel Sounds, Organomegaly - Extremities Exam Extremities exam: full ROM - Back Exam Back exam: NORMAL INSPECTION. absent: CVA tenderness (L), CVA tenderness (R), paraspinal tenderness - Neurological Exam Neurological exam: Alert, CN II-XII Intact, Oriented x3 - Psychiatric Exam Psychiatric exam: Normal Affect, Normal Mood - Skin Skin Exam: Dry, Intact Discharge Plan - Discharge Medications Prescriptions: Albuterol/Ipratropium [Duoneb 3 MG/3 Ml-0.5 MG/3 Ml 3 Ml] 3 ml IH Q6 PRN #4 vial PRN Reason: Shortness Of Breath amLODIPine [Norvasc] 5 mg PO DAILY #30 tab Budesonide [Pulmicort Respules] 0.5 mg IH Q12 #2 vial Methylprednisolone [Medrol Dose Pack (21 tabs)] See Taper PO ASDIR #21 mg QUEtiapine [SEROquel] 100 mg PO HS #30 tab Tigecycline [Tygacil] 50 mg IV Q12 #10 vial - Follow Up Plan Condition: FAIR Disposition: REHAB FACILITY/REHAB UNIT
[2017-04-05 15:59] VITALS: BP 133/85; PULSE 66; TEMP 98.6; O2SAT 94
--- NOTE | 2017-04-05 19:21 | CP.PCM.PN ---
Objective - Vital Signs/Intake and Output Vital Signs (last 24 hours): Temp Pulse Resp BP Pulse Ox 98.6 F 66 20 133/85 94 L 04/05/17 15:58 04/05/17 15:58 04/05/17 15:58 04/05/17 15:58 04/05/17 15:58 - Medications Medications: Current Medications Acetaminophen (Tylenol 325mg Tab) 650 mg PO Q6 PRN PRN Reason: Fever >100.4 F Albuterol/Ipratropium (Duoneb 3 Mg/0.5 Mg (3 Ml) Ud) 3 ml INH RQ6 PRN PRN Reason: Shortness of Breath Amlodipine Besylate (Norvasc) 5 mg PO DAILY FOR[facility]LY [facility], [facility]1983 Last Admin: 04/05/17 09:18 Dose: 5 mg Budesonide (Pulmicort Respules) 0.5 mg INH RQ12 [facility], [facility] Last Admin: 04/04/17 22:06 Dose: Not Given Clonidine HCl (Catapres) 0.1 mg PO Q8H PRN PRN Reason: Systolic Blood Pressure Enoxaparin Sodium (Lovenox) 40 mg SC DAILY [facility], [facility]1983 Last Admin: 04/05/17 09:19 Dose: Not Given Famotidine (Pepcid) 20 mg PO BID [facility], [facility] Last Admin: 04/05/17 17:06 Dose: Not Given Tigecycline 50 mg/ Sodium (Chloride) 100 mls @ 100 mls/hr IVPB Q12H [facility], [facility] Last Admin: 04/05/17 06:09 Dose: 100 mls/hr Methadone HCl (Methadone) 5 mg PO Q24H FARIHA PRN Reason: Taper Stop: 04/06/17 08:59 Last Admin: 04/05/17 09:10 Dose: 5 mg Methylprednisolone (Solu-Medrol) 40 mg IVP Q12H [facility], [facility] Last Admin: 04/05/17 09:18 Dose: 40 mg Metoclopramide HCl (Reglan) 10 mg IVP Q6H PRN PRN Reason: Nausea/Vomiting Last Admin: 04/03/17 09:31 Dose: 10 mg Nicotine (Nicoderm Cq) 1 patch TD DAILY [facility] Last Admin: 04/05/17 09:19 Dose: Not Given Quetiapine Fumarate (Seroquel) 100 mg PO HS [facility] Last Admin: 04/04/17 21:57 Dose: 100 mg Saccharomyces Boulardii (Florastor) 250 mg PO BID FARIHA Last Admin: 04/05/17 17:06 Dose: Not Given - Labs Labs: 04/05/17 07:35 04/05/17 07:35
== END 2017-04-05 19:26 | DRG 584 ==
LOC: C.ER 08:35 → C.9E 11:14 → C.5S 04-01 00:14
PROVIDERS: ADMIT Hospitalist; ATTEND Hospitalist
DX: A41.9 Sepsis, unspecified organism (principal); J10.00 Influenza due to other identified influenza virus with unspecified type of pneumonia; E87.1 Hypo-osmolality and hyponatremia; J44.0 Chronic obstructive pulmonary disease with (acute) lower respiratory infection; F11.23 Opioid dependence with withdrawal; F14.90 Cocaine use, unspecified, uncomplicated; J44.1 Chronic obstructive pulmonary disease with (acute) exacerbation; I10 Essential (primary) hypertension; F17.210 Nicotine dependence, cigarettes, uncomplicated; T38.0X5A Adverse effect of glucocorticoids and synthetic analogues, initial encounter; R19.7 Diarrhea, unspecified; Z23 Encounter for immunization; Z88.0 Allergy status to penicillin